=== PATIENT | female | born 1940 | race Caucasian/White ===

== ENCOUNTER 2016-12-01 18:35 | Emergency (ER) ==
[2016-12-01 18:38] VITALS: TEMP 96.9; BMI 23.0
--- NOTE | 2016-12-01 19:11 | ED.PDOC ---
General ED Provider: Dr. LEIGH ANN NAVARRETE Chief Complaint: Hypertension Stated Complaint: Patient is constipated, when she tried to go today evening, she has to sraign, she came out fell funny, checked the blood pressure it was high, so came for the evaluation, Time Seen by Physician: 19:08 Mode of Arrival: Walk-In Information Source: Patient Primary Care Provider: KAYLAH CHACKO Nursing and Triage Documentation Reviewed and Agree: Yes Cardiovascular Complaint Exam - Hypertension Complaint/Exam Symptoms Are: Still present Timing: Intermittent Aggravating: Reports: Exertion Alleviating: Reports: None Associated Signs and Symptoms: Denies: Chest pain, Vision changes, Anxiety, Recent stress, Headache, Numbness, Tingling, Weakness, Dizziness, Short of air, Swelling Related History: Reports: Similar episode Related Surgical History: Reports: None Cardiac Risk Factors: Reports: None Recent Change in Medications: No JVD Present: No Carotid Bruit Present: No Differential Diagnoses: Hypertension Review of Systems - Review Of Systems Constitutional: Reports: No symptoms Eyes: Reports: No symptoms Ears, Nose, Mouth, Throat: Reports: No symptoms Respiratory: Reports: No symptoms Cardiac: Reports: No symptoms GI: Reports: Constipated : Reports: No symptoms Musculoskeletal: Reports: No symptoms Skin: Reports: No symptoms Neurological: Reports: No symptoms Endocrine: Reports: No symptoms Hematologic/Lymphatic: Reports: No symptoms All Other Systems: Reviewed and Negative Past Medical History - Past Medical History Previously Healthy: No Endocrine: Reports: None Cardiovascular: Reports: CAD, Hypertension Respiratory: Reports: None Hematological: Reports: None Gastrointestinal: Reports: None Genitourinary: Reports: None Neuro/Psych: Reports: None Musculoskeletal: Reports: None Cancer: Reports: None Last Menstrual Period: none - Surgical History General Surgical History: Reports: Other (Stent placement many years ago. ) - Family History Family History: Reports: Heart - Social History Smoking Status: Current every day smoker, Heavy tobacco smoker Smoking Cessation Counseling Time: > 10 min Hx Substance Use: No Alcohol Screening: Occasionally Physical Exam - Physical Exam Appearance: Well-appearing, No pain distress, Well-nourished Eyes: EVE, EOMI, Conjunctiva clear ENT: Ears normal, Nose normal, Oropharynx normal Respiratory: Airway patent, Breath sounds clear, Breath sounds equal, Respirations nonlabored Cardiovascular: RRR, Pulses normal, No rub, No murmur GI/: Soft, Nontender, No masses, Bowel sounds normal, No Organomegaly Musculoskeletal: Normal strength, ROM intact, No edema, No calf tenderness Skin: Warm, Dry, Normal color Neurological: Sensation intact, Motor intact, Reflexes intact, Cranial nerves intact, Alert, Oriented Psychiatric: Affect appropriate, Mood appropriate Re-Evaluation - Re-Evaluation Time of Re-Evaluation: 20:57 Status: Improved Critical Care Note - Critical Care Note Total Time (mins): 0 Course - Course Hematology/Chemistry: 12/01/16 19:17 12/01/16 19:17 Orders, Labs, Meds: Lab Review 12/01/16 12/01/16 19:17 19:55 WBC 9.01 RBC 4.04 L Hgb 11.8 L Hct 35.2 L MCV 87.1 MCH 29.2 MCHC 33.5 RDW Coeff of Valeria 14.7 Plt Count 235 Immature Gran % (Auto) 0.3 Neut % (Auto) 62.4 Lymph % (Auto) 26.9 [place] % (Auto) 6.0 Eos % (Auto) 4.0 Baso % (Auto) 0.4 Immature Gran # (Auto) 0.0 Neut # 5.6 Lymph # 2.4 [place] # 0.5 Eos # 0.4 Baso # 0.0 Sodium 134 L Potassium 4.8 Chloride 101 Carbon Dioxide 24 Anion Gap 13.8 BUN 41 H Creatinine 1.57 H Estimated GFR (MDRD) 32.00 BUN/Creatinine Ratio 26.11 Glucose 101 Calcium 9.3 Total Bilirubin 0.26 AST 11 L ALT 9 L Alkaline Phosphatase 61 Total Creatine Kinase 46 Troponin I < 0.0100 Total Protein 7.0 Albumin 3.9 Globulin 3.1 Albumin/Globulin Ratio 1.26 Urine Color Yellow Urine Clarity Clear Urine pH 6.5 Ur Specific [place] 1.010 Urine Protein Negative Urine Glucose (UA) Negative Urine Ketones Negative Urine Blood Negative Urine Nitrite Negative Urine Bilirubin Negative Urine Urobilinogen 0.2 Ur Leukocyte Esterase Trace Urine Microscopic WBC 2-5 Ur Squamous Epith Cells 5-10 Urine Bacteria Trace Orders Category Date Time Status EKG-(ED ONLY) Stat CARDIO 12/01/16 19:04 Completed CBC W/ AUTO DIFF Stat LAB 12/01/16 19:17 Completed COMPREHENSIVE METABOLIC PANEL Stat LAB 12/01/16 19:17 Completed CREATINE KINASE Stat LAB 12/01/16 19:17 Completed TROPONIN I Stat LAB 12/01/16 19:17 Completed UA [URINALYSIS C & S IF INDICATED] Stat LAB 12/01/16 19:55 Completed Metoprolol Tartrate [Lopressor] MEDS 12/01/16 19:13 Discontinued 50 mg PO ONCE STA CT ABDOMEN/PELVIS WO CONTRAST Stat RADS 12/01/16 19:[address] HEAD W/O CONTRAST Stat RADS 12/01/16 19:04 Completed Medications Discontinued Medications Generic Name Dose Route Start Last Admin Trade Name Joseph PRN Reason Stop Dose Admin Metoprolol Tartrate 50 mg 12/01/16 19:13 12/01/16 19:33 Lopressor PO 12/01/16 19:14 50 mg ONCE STA Administration Vital Signs: Temp Pulse Resp BP Pulse Ox 12/01/16 20:26 153/65 H 12/01/16 20:00 180/75 H 12/01/16 18:35 96.9 F L 70 16 206/80 H 96 JASON Risk Score JASON Risk Score: Risk Score Odds of by 30D 0 0.1 (0.1-0.2) 1 0.3 (0.2-0.3) 2 0.4 (0.3-0.5) 3 0.7 (0.6-0.9) 4 1.2 (1.0-1.5) 5 2.2 (1.9-2.6) 6 3.0 (2.5-3.6) 7 4.8 (3.8-6.1) Departure - Departure Time of Disposition: 20:57 Disposition: HOME SELF-CARE Discharge Problem: Hypertension Qualifiers: Hypertension type: essential hypertension Qualifier Code: (I10) Essential ( primary) hypertension Instructions: Hypertension (ED) Condition: Stable Pt referred to PMD for follow-up: Yes Additional Instructions: keep checking the blood pressure Increase fiber diet Miralax po daily Increase hydration Prescriptions: Polyethylene Glycol 3350 [Miralax] 17 gm PO DAILY #30 powd.pack Allergies/Adverse Reactions: Allergies quinine Adverse Reaction (Verified 12/01/16 18:38) Sulfa (Sulfonamide Antibiotics) Adverse Reaction (Verified 12/01/16 18:38) Home Medications: Ambulatory Orders Aspirin [Aspirin EC] 81 mg PO DAILYWM 10/01/15 Lisinopril/Hydrochlorothiazide [Zestoretic 20-12.5 mg Tablet] 1 each PO DAILY Pantoprazole Sodium [Protonix] 20 mg PO DAILY 10/01/15 Amlodipine Besylate [Norvasc] 5 mg PO DAILY 10/09/15 Polyethylene Glycol 3350 [Miralax] 17 gm PO DAILY #30 powd.pack 12/01/16 Disposition Discussed With: Patient, Family
[2016-12-01 19:18] LABS: BASOPHILS % (AUTO) 0.4 % (0.0-3.0); EOSINOPHILS # (AUTO) 0.4 K/ul (0.0-0.7); HEMATOCRIT 35.2 % (37.0-47.0); HEMOGLOBIN 11.8 g/dl (12.0-16.0); IMMATURE GRANULOCYTE % (AUTO) 0.3 % (0.0-5.0); LYMPHOCYTES # (AUTO) 2.4 K/uL (0.60-3.4); LYMPHOCYTES % (AUTO) 26.9 (10.0-50.0); MEAN CORPUSCULAR HEMOGLOBIN 29.2 pg (27.0-31.0); MEAN CORPUSCULAR HGB CONC 33.5 (31.8-35.4); MEAN CORPUSCULAR VOLUME 87.1 fl (81.0-99.0); MONOCYTES # (AUTO) 0.5 K/uL (0.4-2.0); NEUTROPHILS # (AUTO) 5.6 K/ul (2.0-6.9); NEUTROPHILS % (AUTO) 62.4; PLATELET COUNT 235 10^3/uL (140-440); RED BLOOD COUNT 4.04 10^6/ul (4.20-5.40); WHITE BLOOD COUNT 9.01 K/ul (4.6-10.2)
[2016-12-01] MEDS: LOPRESSOR PO STA (19:33)
[2016-12-01 19:44] LABS: ALANINE AMINOTRANSFERASE 9 U/L (12-78); ALBUMIN 3.9 g/dL (3.4-5.0); ALBUMIN/GLOBULIN RATIO 1.26; ALKALINE PHOSPHATASE 61 U/L (53-141); ANION GAP 13.8; ASPARTATE AMINO TRANSFERASE 11 U/L (15-37); BILIRUBIN,TOTAL 0.26 mg/dL (0.00-1.20); BLOOD UREA NITROGEN 41 mg/dL (7-18); BUN/CREATININE RATIO 26.11; CALCIUM 9.3 mg/dL (8.2-10.2); CARBON DIOXIDE 24 mmol/L (23-31); CHLORIDE 101 mmol/L (98-107); CREATINE KINASE 46 U/L; CREATININE 1.57 mg/dL (0.60-1.30); GLUCOSE 101 mg/dL (82-115); POTASSIUM 4.8 mmol/L (3.5-5.10); SODIUM 134 mmol/L (136-145)
[2016-12-01 20:04] LABS: BILIRUBIN,URINE Negative (NEGATIVE); KETONES,URINE Negative (NEGATIVE); LEUKOCYTE ESTERASE ,URINE Trace (NEGATIVE); NITRITE,URINE Negative (NEGATIVE); PH,URINE 6.5 (5-9); PROTEIN,URINE Negative (NEGATIVE); URINE, BLOOD Negative (NEGATIVE)
[2016-12-01 20:09] LABS: ADD URINE MICROSCOPIC YES; BACTERIA,URINE TRACE (NOT PRESENT)
--- NOTE | 2016-12-01 20:21 | CT ---
EXAM: CT scan brain without contrast HISTORY: Dizziness COMPARISON: None. FINDINGS: Contiguous axial images obtained from the skull base to the convexities without contrast utilizing 5-mm collimation. Sagittal and coronal reconstructions were imaged and reviewed.. The ve ntricles and CSF spaces are prominent compatible with age appropriate atrophy. There is periventric ular hypodensity noted compatible with chronic microvascular disease. Atherosclerotic changes are s een involving the bilateral vertebral and bilateral cavernous internal carotid arteries. Visualized paranasal sinuses and mastoid air cells are clear. IMPRESSION: Age appropriate atrophy with chronic microvascular disease. ASVD
--- NOTE | 2016-12-01 20:30 | CT ---
Exam: CT of the abdomen pelvis without contrast History: Constipation Technique: [address] of the abdomen and pelvis following intravenous contrast FINDINGS: The lung bases are clear. No significant liver abnormality. The adrenals, pancreas and sp oskar are unremarkable. The stomach and hiatus are unremarkable.Prior cholecystectomy. Kidneys and pr oximal collecting system are unremarkable. The appendix is not seen. Bowel loops demonstrate normal caliber. No inflamatory change seen in the mesentery or retroperitoneum. Atherosclerotic calcificati on of the aorta with infrarenal dilation measuring 3.8 x 3.6 cm. Normal pelvic bowel loops. No inflammation of the pelvic fat. Prior hysterectomy. Normal urinary bladder. No acute findings of the skeleton. Impression: 1. No inflammatory process, bowel or urinary obstruction is seen. No acute findings of the abdomen or pelvis.
[2016-12-01 21:03] VITALS: BP 153/63
== END 2016-12-01 21:02 | disposition home or self-care (01) ==
LOC: ED 18:35
DX: I10 Essential (primary) hypertension (principal); K59.00 Constipation, unspecified; I25.10 Atherosclerotic heart disease of native coronary artery without angina pectoris; F17.210 Nicotine dependence, cigarettes, uncomplicated; Z79.899 Other long term (current) drug therapy
CPT/HCPCS: 36415; 80053; 81001; 82550; 84484; 85025; 93005; 93010; 99283

== ENCOUNTER 2016-12-16 21:30 | Observation (INO) ==
[2016-12-16] MEDS ORDERED: SODIUM CHLORIDE 1,000 ML IV STA (21:54)
[2016-12-16 22:03] LABS: BASOPHILS % (AUTO) 0.3 % (0.0-3.0); EOSINOPHILS # (AUTO) 0.2 K/ul (0.0-0.7); EOSINOPHILS % (AUTO) 1.1 % (0.0-7.0); HEMATOCRIT 35.8 % (37.0-47.0); HEMOGLOBIN 12.4 g/dl (12.0-16.0); IMMATURE GRANULOCYTE % (AUTO) 0.8 % (0.0-5.0); LYMPHOCYTES # (AUTO) 1.4 K/uL (0.60-3.4); LYMPHOCYTES % (AUTO) 9.1 (10.0-50.0); MEAN CORPUSCULAR HEMOGLOBIN 29.4 pg (27.0-31.0); MEAN CORPUSCULAR HGB CONC 34.6 (31.8-35.4); MEAN CORPUSCULAR VOLUME 84.8 fl (81.0-99.0); MONOCYTES # (AUTO) 0.4 K/uL (0.4-2.0); MONOCYTES % (AUTO) 2.5 (0-10); NEUTROPHILS % (AUTO) 86.2; PLATELET COUNT 283 10^3/uL (140-440); RED BLOOD COUNT 4.22 10^6/ul (4.20-5.40); WHITE BLOOD COUNT 15.03 K/ul (4.6-10.2)
--- NOTE | 2016-12-16 22:11 | ED.PDOC ---
General ED Provider: Dr. MAURI SHUKLA Chief Complaint: Dizziness Stated Complaint: patient was seen in the clinic 4 days ago after one day of dizzines/ light headedness. She was placed on medications for vertigo which she has been taking with no imrpovement. Went back to the clinic yesterday. Had her lisinopril increased 2 weeks ago. She continues to smoke cigg. She then started having chest pain which she describes a pressure with some back pain when she states is a burning senstation. Denies any chest pain right now earlier the pain was 7/10. Took her Asprin Time Seen by Physician: 21:50 Information Source: Patient Exam Limitations: No limitations Primary Care Provider: KAYLAH CHACKO Seen Within Last 72 Hours for Same Complaint By: Clinic Nursing and Triage Documentation Reviewed and Agree: Yes Neurological Complaint Exam - Dizziness Complaint/Exam Last Known Well: 5 days ago Onset: Gradual Duration: 5 days Symptoms Are: Still present Timing: Intermittent Episodes Lasting: Minutes Initial Severity: Moderate Current Severity: Moderate Character: Reports: Lightheaded, Weak, Dizzy Aggravating: Reports: Position change, Supine to erect Associated Signs and Symptoms: Reports: Chest pain. Denies: Nausea, Vomiting, Diaphoresis, Tinnitus, Short of air, Palpitations, Unsteady gait, GI blood loss , Visual changes, Decreased oral intake, Change in medication, Change in diet, OTC meds, Loss of balance Cardiac Risk Factors: Reports: Hypertension, Smoking, Prior HI, CAD CVA Risk Factors: Reports: Hypertension, Smoking, CAD Related Surgical History: Reports: None JVD Present: No Carotid Bruit Present: No Rectal Heme Positive: No Nystagmus Present: No Gag Reflex Present: Yes Meningeal Signs Positive: No Focal Weakness: Present: None Focal Sensory Loss: Present: None Gait: Normal [id number]: Normal Findings Romberg Test Positive: Yes Babinski Sign: Negative Right, Negative Left Heel to Toe Normal: No [place]-Hallpike Test Positive: No (minimal symptoms ) Differential Diagnoses: Anxiety Quality Indicators for Cardiac Chest Pain: EKG in 10min. Quality Indicator For Non-Traumatic Chest Pain/Syncope: EKG Performed Review of Systems - Review Of Systems Constitutional: Reports: Weakness Eyes: Reports: No symptoms Ears, Nose, Mouth, Throat: Reports: Ear pain Respiratory: Reports: No symptoms Cardiac: Reports: Chest pain (pressure ), Lightheadedness GI: Reports: No symptoms : Reports: No symptoms Musculoskeletal: Reports: Back pain Skin: Reports: No symptoms Neurological: Reports: Anxiety, Headache Endocrine: Reports: No symptoms Hematologic/Lymphatic: Reports: No symptoms All Other Systems: Reviewed and Negative Past Medical History - Past Medical History Previously Healthy: No Endocrine: Reports: None Cardiovascular: Reports: CAD, Hypertension Respiratory: Reports: None Hematological: Reports: None Gastrointestinal: Reports: None Genitourinary: Reports: None Neuro/Psych: Reports: None Musculoskeletal: Reports: None Cancer: Reports: None Last Menstrual Period: NONE - Surgical History General Surgical History: Reports: Appendectomy, Cholecystectomy, Stent Placement, Other (Stent placement many years ago. ) - Family History Family History: Reports: Heart - Social History Smoking Status: Current every day smoker, Heavy tobacco smoker Hx Substance Use: No Alcohol Screening: Occasionally Physical Exam - Physical Exam Appearance: Ill-appearing, Thin Ill-appearing: Mild Eyes: EVE, EOMI, Conjunctiva clear ENT: Ears normal, Nose normal, Oropharynx normal Neck: Supple Respiratory: Airway patent, Breath sounds clear, Breath sounds equal, Respirations nonlabored Cardiovascular: RRR, Pulses normal, No rub, No murmur GI/: Soft, Nontender, No masses, Bowel sounds normal, No Organomegaly Musculoskeletal: Normal strength, ROM intact, No edema, No calf tenderness Skin: Warm, Dry, Normal color Neurological: Sensation intact, Motor intact, Reflexes intact, Cranial nerves intact, Alert, Oriented Psychiatric: Anxious Interpretation - Radiology Interpretation Radiology Interpretation By: Radiologist Radiology Results: Negative Exam Interpreted: CT Scan (head without ) Radiology Interpretation By: Radiologist Radiology Results: Negative Exam Interpreted: Portable CXR - Canvas Baster Rate: Normal Rhythm: Sinus - EKG Interpretation Time of EKG #1: 21:40 Rate: Paddy Rhythm: Sinus Ectopy: None [place]: NL ST Segment: Normal Interpretation: s Critical Care Note - Critical Care Note Total Time (mins): 15 Course - Course Hematology/Chemistry: 12/17/16 04:32 12/17/16 04:32 Orders, Labs, Meds: Lab Review 12/16/16 12/16/16 21:59 22:24 WBC 15.03 H RBC 4.22 Hgb 12.4 Hct 35.8 L MCV 84.8 MCH 29.4 MCHC 34.6 RDW Coeff of Valeria 14.5 Plt Count 283 Immature Gran % (Auto) 0.8 Neut % (Auto) 86.2 Lymph % (Auto) 9.1 L [place] % (Auto) 2.5 Eos % (Auto) 1.1 Baso % (Auto) 0.3 Immature Gran # (Auto) 0.1 Neut # 13.0 H Lymph # 1.4 [place] # 0.4 Eos # 0.2 Baso # 0.0 Sodium 127 L Potassium 5.5 H Chloride 98 Carbon Dioxide 18 L Anion Gap 16.5 BUN 32 H Creatinine 1.34 H Estimated GFR (MDRD) 39.00 BUN/Creatinine Ratio 23.88 Glucose 126 H Calcium 9.5 Total Bilirubin 0.24 AST 11 L ALT 11 L Alkaline Phosphatase 59 Total Creatine Kinase 50 Troponin I < 0.0100 B-Natriuretic Peptide 179 H Total Protein 7.0 Albumin 4.0 Globulin 3.0 Albumin/Globulin Ratio 1.33 Urine Color Yellow Urine Clarity Clear Urine pH 7.0 Ur Specific [place] 1.010 Urine Protein Negative Urine Glucose (UA) Negative Urine Ketones Negative Urine Blood Negative Urine Nitrite Negative Urine Bilirubin Negative Urine Urobilinogen 0.2 Ur Leukocyte Esterase Negative Orders Category Date Time Status PLACE PATIENT OBSERVATION .TO MEDSURG (MONITORED BED ADMISSION 12/16/16 22: 55 Completed ) EKG-(ED ONLY) Stat CARDIO 12/16/16 21:54 Completed EKG-(IP & OP ONLY) Routine CARDIO 12/17/16 06:00 Completed ACTIVITY .Up ad Jennifer CARE 12/16/16 22:57 Active INTAKE & OUTPUT Q8HR CARE 12/16/16 22:56 Active TELEMETRY MONITORING TELE CARE 12/16/16 22:56 Active VITAL SIGNS Q4HR CARE 12/16/16 22:57 Active CARDIAC DIET DIETARY 12/16/16 Breakfast Ordered ED IV/MEDIPORT/POWERPORT .ONCE EMERGENCY 12/16/16 21:54 Completed Orthostatic [ED ORTHOSTATIC VITAL SIGNS] .ONCE EMERGENCY 12/16/16 22:10 Completed B-TYPE NATRIURETIC PEPTIDE Stat LAB 12/16/16 21:59 Completed BASIC METABOLIC PANEL DAILY@0600 LAB 12/17/16 04:32 Completed BASIC METABOLIC PANEL DAILY@0600 LAB 12/18/16 06:00 Ordered BASIC METABOLIC PANEL DAILY@0600 LAB 12/19/16 06:00 Ordered BASIC METABOLIC PANEL DAILY@0600 LAB 12/20/16 06:00 Ordered BASIC METABOLIC PANEL DAILY@0600 LAB 12/21/16 06:00 Ordered BASIC METABOLIC PANEL DAILY@0600 LAB 12/22/16 06:00 Ordered BASIC METABOLIC PANEL DAILY@0600 LAB 12/23/16 06:00 Ordered BASIC METABOLIC PANEL DAILY@0600 LAB 12/24/16 06:00 Ordered BASIC METABOLIC PANEL DAILY@0600 LAB 12/25/16 06:00 Ordered BASIC METABOLIC PANEL DAILY@0600 LAB 12/26/16 06:00 Ordered BASIC METABOLIC PANEL DAILY@0600 LAB 12/27/16 06:00 Ordered BASIC METABOLIC PANEL DAILY@0600 LAB 12/28/16 06:00 Ordered BASIC METABOLIC PANEL DAILY@0600 LAB 12/29/16 06:00 Ordered BASIC METABOLIC PANEL DAILY@0600 LAB 12/30/16 06:00 Ordered BASIC METABOLIC PANEL DAILY@0600 LAB 12/31/16 06:00 Ordered BASIC METABOLIC PANEL DAILY@0600 LAB 01/01/17 06:00 Ordered BASIC METABOLIC PANEL DAILY@0600 LAB 01/02/17 06:00 Ordered BASIC METABOLIC PANEL DAILY@0600 LAB 01/03/17 06:00 Ordered BASIC METABOLIC PANEL DAILY@0600 LAB 01/04/17 06:00 Ordered BASIC METABOLIC PANEL DAILY@0600 LAB 01/05/17 06:00 Ordered CBC W/ AUTO DIFF DAILY@06 LAB 12/17/16 04:32 Completed CBC W/ AUTO DIFF DAILY@06 LAB 12/18/16 06:00 Ordered CBC W/ AUTO DIFF DAILY@06 LAB 12/19/16 06:00 Ordered CBC W/ AUTO DIFF DAILY@0600 LAB 12/20/16 06:00 Ordered CBC W/ AUTO DIFF DAILY@06 LAB 12/21/16 06:00 Ordered CBC W/ AUTO DIFF DAILY@06 LAB 12/22/16 06:00 Ordered CBC W/ AUTO DIFF DAILY@0600 LAB 12/23/16 06:00 Ordered CBC W/ AUTO DIFF DAILY@0600 LAB 12/24/16 06:00 Ordered CBC W/ AUTO DIFF DAILY@0600 LAB 12/25/16 06:00 Ordered CBC W/ AUTO DIFF DAILY@0600 LAB 12/26/16 06:00 Ordered CBC W/ AUTO DIFF DAILY@0600 LAB 12/27/16 06:00 Ordered CBC W/ AUTO DIFF DAILY@0600 LAB 12/28/16 06:00 Ordered CBC W/ AUTO DIFF DAILY@0600 LAB 12/29/16 06:00 Ordered CBC W/ AUTO DIFF DAILY@0600 LAB 12/30/16 06:00 Ordered CBC W/ AUTO DIFF DAILY@0600 LAB 12/31/16 06:00 Ordered CBC W/ AUTO DIFF DAILY@0600 LAB 01/01/17 06:00 Ordered CBC W/ AUTO DIFF DAILY@0600 LAB 01/02/17 06:00 Ordered CBC W/ AUTO DIFF DAILY@0600 LAB 01/03/17 06:00 Ordered CBC W/ AUTO DIFF DAILY@0600 LAB 01/04/17 06:00 Ordered CBC W/ AUTO DIFF DAILY@0600 LAB 01/05/17 06:00 Ordered CBC W/ AUTO DIFF Stat LAB 12/16/16 21:59 Completed COMPREHENSIVE METABOLIC PANEL Stat LAB 12/16/16 21:59 Completed CREATINE KINASE Stat LAB 12/16/16 21:59 Completed TROPONIN I Q8H LAB 12/17/16 04:32 Completed TROPONIN I Q8H LAB 12/17/16 13:00 Ordered TROPONIN I Stat LAB 12/16/16 21:59 Completed URINALYSIS C & S IF INDICATED Stat LAB 12/16/16 22:24 Completed 0.9 % Sodium Chloride [Saline Flush] MEDS 12/16/16 21:54 Ordered 1 syr IVF PRN PRN Acetaminophen [Tylenol] MEDS 12/16/16 22:55 Ordered 650 mg PO Q4H PRN Amlodipine Besylate [Norvasc] MEDS 12/17/16 09:00 Ordered 5 mg PO DAILY Aspirin [Aspirin EC] MEDS 12/17/16 08:00 Ordered 81 mg PO DAILYWM Enoxaparin Sodium [Lovenox] MEDS 12/17/16 09:00 Ordered 30 mg SUBCUT DAILY Hydrocodone Bit/Acetaminophen [[place] 5-325] MEDS 12/16/16 22:55 Ordered 1 tab PO Q6H PRN Lisinopril [Lisinopril] MEDS 12/17/16 09:00 Ordered 20 mg PO BID Morphine Sulfate [Morphine 2 mg/ml Syringe] MEDS 12/16/16 22:55 Ordered 2 mg IVP Q4H PRN Ondansetron HCl/Pf [Zofran 4 mg/2 ml] MEDS 12/16/16 22:55 Ordered 4 mg IVP Q6H PRN Pantoprazole Sodium [Protonix] MEDS 12/17/16 09:00 Ordered 20 mg PO DAILY Sodium Chloride 0.9% [Sodium Chloride] 1,000 ml MEDS 12/16/16 21:54 Discontinued IV 1,000 mls/hr Sodium Chloride 0.9% [Sodium Chloride] 1,000 ml MEDS 12/16/16 23:00 Ordered IV 75 mls/hr RESUSCITATION STATUS Routine OTHERS 12/16/16 22:55 Ordered CHEST, 1V AP ONLY Stat RADS 12/16/16 21:[address] HEAD W/O CONTRAST Stat RADS 12/16/16 21:55 Completed Medications Generic Name Dose Route Start Last Admin Trade Name Freq PRN Reason Stop Dose Admin Acetaminophen 650 mg 12/16/16 22:55 Tylenol PO Q4H PRN Mild Pain Acetaminophen/Hydrocodone Bitart 1 tab 12/16/16 22:55 [place] 5-325 PO Q6H PRN moderate pain Amlodipine Besylate 5 mg 12/17/16 09:00 Norvasc PO DAILY EDUAR Aspirin 81 mg 12/17/16 08:00 Aspirin Ec PO DAILYWM EDUAR Enoxaparin Sodium 30 mg 12/17/16 09:00 Lovenox SUBCUT DAILY EDUAR Sodium Chloride 1,000 mls @ 75 mls/hr 12/16/16 23:00 12/16/16 23:52 Sodium Chloride IV 75 mls/hr .[id number] EDUAR Administration Morphine Sulfate 2 mg 12/16/16 22:55 Morphine 2 Mg/Ml Syringe IVP Q4H PRN Severe Pain Non-Formulary Medication 20 mg 12/17/16 09:00 Lisinopril [Lisinopril] PO BID EDUAR Non-Formulary Medication 20 mg 12/17/16 09:00 Pantoprazole Sodium [Protonix] PO DAILY EDUAR Ondansetron HCl 4 mg 12/16/16 22:55 Zofran 4 Mg/2 Ml IVP Q6H PRN Nausea/vomiting Sodium Chloride 1 syr 12/16/16 21:54 12/16/16 22:03 Saline Flush IVF 1 syr PRN PRN Administration To flush IV Discontinued Medications Generic Name Dose Route Start Last Admin Trade Name Freq PRN Reason Stop Dose Admin Sodium Chloride 1,000 mls @ 1,000 mls/hr 12/16/16 21:54 12/16/16 22:03 Sodium Chloride IV 12/16/16 22:53 1,000 mls/hr .Q1H STA Administration Vital Signs: Temp Pulse Resp BP Pulse Ox 12/16/16 22:33 55 L 153/71 H 12/16/16 22:32 54 L 156/66 H 12/16/16 21:31 97.1 F L 58 L 16 179/70 H 93 L Departure - Departure Time of Disposition: 22:44 Disposition: PLACED OBSERVATION Discharge Problem: Dizziness, Hyponatremia, Hyperkalemia Chest pain Qualifiers: Chest pain type: unspecified Qualifier Code: (R07.9) Chest pain, unspecified Hypertension Qualifiers: Hypertension type: essential hypertension Qualifier Code: (I10) Essential ( primary) hypertension Condition: Fair Pt referred to PMD for follow-up: No (admitted ) Allergies/Adverse Reactions: Allergies quinine Adverse Reaction (Verified 12/16/16 21:35) Sulfa (Sulfonamide Antibiotics) Adverse Reaction (Verified 12/16/16 21:35) Home Medications: Ambulatory Orders Aspirin [Aspirin EC] 81 mg PO DAILYWM 10/01/15 Pantoprazole Sodium [Protonix] 20 mg PO DAILY 10/01/15 Amlodipine Besylate [Norvasc] 5 mg PO DAILY 10/09/15 Lisinopril 20 mg PO BID 12/16/16 Disposition Discussed With: Patient, Family
[2016-12-16 22:26] LABS: ALANINE AMINOTRANSFERASE 11 U/L (12-78); ALBUMIN/GLOBULIN RATIO 1.33; ALKALINE PHOSPHATASE 59 U/L (53-141); ANION GAP 16.5; ASPARTATE AMINO TRANSFERASE 11 U/L (15-37); BILIRUBIN,TOTAL 0.24 mg/dL (0.00-1.20); BLOOD UREA NITROGEN 32 mg/dL (7-18); BUN/CREATININE RATIO 23.88; CALCIUM 9.5 mg/dL (8.2-10.2); CARBON DIOXIDE 18 mmol/L (23-31); CHLORIDE 98 mmol/L (98-107); CREATININE 1.34 mg/dL (0.60-1.30); GLUCOSE 126 mg/dL (82-115); POTASSIUM 5.5 mmol/L (3.5-5.10); SODIUM 127 mmol/L (136-145)
[2016-12-16 22:27] LABS: CREATINE KINASE 50 U/L
--- NOTE | 2016-12-16 22:32 | DI ---
EXAM: Portable chest HISTORY: Dizziness COMPARISON: Single-view chest 10/02/2015 FINDINGS: The heart is normal in size. Atherosclerotic changes are seen involving the aortic arch. . There are benign granulomatous changes. IMPRESSION: No evidence of active pulmonary disease.
[2016-12-16 22:33] LABS: BILIRUBIN,URINE Negative (NEGATIVE); KETONES,URINE Negative (NEGATIVE); LEUKOCYTE ESTERASE ,URINE Negative (NEGATIVE); NITRITE,URINE Negative (NEGATIVE); PROTEIN,URINE Negative (NEGATIVE); URINE, BLOOD Negative (NEGATIVE)
[2016-12-16 22:34] LABS: ADD URINE MICROSCOPIC NO
--- NOTE | 2016-12-16 22:34 | CT ---
EXAM: CT head without contrast 12/16/2016. Coronal reformatted images obtained HISTORY: Dizziness COMPARISON: 12/01/2016 FINDINGS: There is no evidence of intracranial hemorrhage. The midline is maintained. There is no hydrocephalus. Generalized atrophy and chronic microvascular ischemic changes. No cerebellar tonsi llar ectopia. Evaluation of the calvarium shows no fracture. The mastoid air cells are normally pn eumatized. IMPRESSION: No acute intracranial abnormality.
[2016-12-16] MEDS ORDERED: NORCO 5-325 PO PRN (22:55)
[2016-12-16] MEDS ORDERED: MORPHINE 2 MG/ML SYRINGE IVP PRN (22:55)
[2016-12-16] MEDS ORDERED: ZOFRAN 4 MG/2 ML IVP PRN (22:55)
[2016-12-16] MEDS ORDERED: TYLENOL PO PRN (22:55)
[2016-12-16] MEDS ORDERED: SODIUM CHLORIDE 1,000 ML IV SCH (23:00)
[2016-12-17 00:16] VITALS: BMI 23.3
[2016-12-17 05:08] LABS: BASOPHILS % (AUTO) 0.2 % (0.0-3.0); EOSINOPHILS # (AUTO) 0.1 K/ul (0.0-0.7); EOSINOPHILS % (AUTO) 0.7 % (0.0-7.0); HEMATOCRIT 32.9 % (37.0-47.0); HEMOGLOBIN 11.2 g/dl (12.0-16.0); IMMATURE GRANULOCYTE % (AUTO) 0.5 % (0.0-5.0); LYMPHOCYTES # (AUTO) 1.6 K/uL (0.60-3.4); LYMPHOCYTES % (AUTO) 13.2 (10.0-50.0); MEAN CORPUSCULAR HEMOGLOBIN 29.2 pg (27.0-31.0); MEAN CORPUSCULAR VOLUME 85.9 fl (81.0-99.0); MONOCYTES # (AUTO) 0.5 K/uL (0.4-2.0); MONOCYTES % (AUTO) 4.2 (0-10); NEUTROPHILS # (AUTO) 9.8 K/ul (2.0-6.9); NEUTROPHILS % (AUTO) 81.2; PLATELET COUNT 248 10^3/uL (140-440); RED BLOOD COUNT 3.83 10^6/ul (4.20-5.40); WHITE BLOOD COUNT 12.09 K/ul (4.6-10.2)
[2016-12-17 05:34] LABS: ANION GAP 13.3; CALCIUM 8.9 mg/dL (8.2-10.2); CREATININE 1.2 mg/dL (0.60-1.30); POTASSIUM 5.3 mmol/L (3.5-5.10)
[2016-12-17] MEDS ORDERED: PROTONIX PO SCH ×2 (07:30)
[2016-12-17] MEDS ORDERED: ASPIRIN EC PO SCH (08:00)
[2016-12-17] MEDS ORDERED: NORVASC PO SCH (09:00)
[2016-12-17] MEDS ORDERED: LOVENOX SUBCUT SCH (09:00)
[2016-12-17] MEDS ORDERED: NON-FORMULARY MEDICATION (Lisinopril [Lisinopril] 20 MG) PO SCH ×22 (09:00)
[2016-12-17] MEDS ORDERED: ZESTRIL PO SCH (09:00)
[2016-12-17] MEDS ORDERED: PANTOPRAZOLE SODIUM 20 MG PO SCH ×22 (09:00)
--- NOTE | 2016-12-17 14:28 | PCM.PROG ---
Attending Provider: ATTENDING PROVIDER: Dr. KAYLAH CHACKO DATE OF SERVICE: 12/17/16 SUBJECTIVE: This 76 year old WHITE/ F was hospitalized 12/16/16 with chest pain seem to be atypical left pectoral muscle mostly on movement of the shoulder. Was seen in the office and ER. Cardiac work up was negative. REVIEW OF SYSTEMS: CONSTITUTIONAL: No night sweats. No fatigue, malaise, lethargy. No fever or chills. HEENT: Eyes: No visual changes. No eye pain. No eye discharge. ENT: No runny nose. No epistaxis. No sinus pain. No odynophagia. No congestion. RESPIRATORY: No cough, no congestion. No hemoptysis. CARDIOVASCULAR: No angina symptoms. No CHF symptoms. No atypical chest pain for CAD. No palpitations. No shortness of breath. GASTROINTESTINAL: No abdominal pain. No nausea or vomiting. No diarrhea or constipation. No hematemesis. No hematochezia. GENITOURINARY: No urgency. No frequency. No dysuria. No hematuria. No obstructive symptoms. No discharge. No pain. No significant abnormal bleeding. MUSCULOSKELETAL: No musculoskeletal pain; no joint swelling. NEUROLOGICAL: Awake, alert, oriented to time, place and person. No headache. No neck pain. No syncope. No seizures. No dizziness. PSYCHIATRIC: Not anxious. No depression. No suicidal thoughts. No homicidal thoughts. SKIN: No rash. No lesions. No wounds. ENDOCRINE: No unexplained weight loss. No weight gain. HEMATOLOGIC/LYMPHATIC: No anemia. No purpura. No petechiae. No prolonged or excessive bleeding. No palpable lymph nodes. PHYSICAL EXAMINATION: GENERAL: The patient is awake, alert and oriented to time, place and person , sitting in bed in no distress. VITAL SIGNS: Temperature 97.9 F, Pulse 59, Respiratory Rate 16, BP 130/68, Pulse Ox 94% HEENT: Head normocephalic, atraumatic. Eyes: Extraocular muscles are intact. Pupils are equal, round and reactive to light and accommodation. Ears: No lesions. Nose appeared normal. Throat: No exudate or erythema. NECK: Supple. No JVD, no carotid bruit. No lymphadenopathy or thyromegaly. LUNGS: Clear to auscultation. Percussion note normal. Chest symmetrical. HEART: S1, S2, no S3. No murmurs. No cyanosis or clubbing. No ascites. Pulses: Dorsalis pedis and posterior tibial pulses +1 to +2 both sides. ABDOMEN: Soft. Non-tender. Bowel sounds active. No CVA tenderness. No mass felt. EXTREMITIES: No edema. Full range of motion of all extremities, equal. NEUROLOGIC: No focal deficit. Cranial nerves II through XII are grossly intact. No headache, no double vision or headache. SKIN: Not dry. Intact. Turgor-normal. LYMPHATIC: No palpable lymph nodes/no lymphedema. MUSCULOSKELETAL: Normal joints with no swelling. Muscle tone is normal. LAB REVIEW: 12/17/16 04:32 12/17/16 04:32 12/17/16 04:32: WBC 12.09 H, RBC 3.83 L, Hgb 11.2 L, Hct 32.9 L, MCV 85.9, MCH 29.2, MCHC 34.0, RDW Coeff of Valeria 14.5, Plt Count 248, Immature Gran % (Auto) 0.5, Neut % (Auto) 81.2, Lymph % (Auto) 13.2, [place] % (Auto) 4.2, Eos % (Auto) 0.7, Baso % (Auto) 0.2, Immature Gran # (Auto) 0.1, Neut # 9.8 H, Lymph # 1.6, [place] # 0.5, Eos # 0.1, Baso # 0.0, Sodium 131 L, Potassium 5.3 H, Chloride 102, Carbon Dioxide 21 L, Anion Gap 13.3, BUN 30 H, Creatinine 1.20, Estimated GFR ( MDRD) 44.00, BUN/Creatinine Ratio 25.00, Glucose 102, Calcium 8.9, Troponin I < 0.0100 ASSESSMENT: 1. Chest pain seems to be non-cardiac 2. Coronary artery disease with stent 3. History hypertension 4. Dyslipidemia 5. Smoking PLAN: 1. The patient is noncompliant 2. Wants to go home 3. Will do echo and stress echo before she goes home 4. Counseling for smoking done 5. Advised to take medication regularly along with baby aspirin Plan and coordination of the patient's care discussed in the presence of [employer]er and nurse. CONDITION: Stable SCRIBED BY: Kacey STONE scribed while in presence of service performed by Dr. KAYLAH CHACKO on 12/17/16 ([id number])
[2016-12-17 15:52] VITALS: BP 158/66; TEMP 97.8
--- NOTE | 2016-12-20 10:07 | ECHOSTRESS ---
Date of Exam: 12/17/16 Ordering Physician: KAYLAH CHACKO Reason for Echo: CHEST PAIN, HX OF CAD, [place] WITH STENT 2009/STRESS TEST--NO ISCHEMIA M-Mode Normal Adult Results LV Dimensions Normal Adult Results AoV Opening excursions >1.6 LVEDD-base- 3.5-5.8 Ao root dimensions 2.0-3.7 LVESD-base- 3.1-4.6 L. Atrium dimensions 1.9-3.8 Post. Wall thickness 0.8-1.1 IV septum (thickness) 0.7-1.2 Post. Wall excursion 0.72-1.3 Septal motion Systolic motion R. Ventricular cavity 1.5-2.0 LVEF 60% Paradoxical septal wall motion 2-D: NORMAL LEFT VENTRICULAR CONTRACTILITY--RESTING AND POST EXERCISE M-MODE: MV: AV: TV: PV: CHAMBER SIZE: WALL MOTION: NORMAL LEFT VENTRICULAR CONTRACTILITY--RESTING AND POST EXERCISE PERICARDIUM: INTERPRETATION: 1. NORMAL LEFT VENTRICULAR CONTRACTILITY--RESTING AND POST EXERCISE MTDD
--- NOTE | 2016-12-20 10:10 | ECHO2D ---
Date of Exam: 12/17/16 Ordering Physician: SALMA CHACKO Reason for Echo: CHEST PAIN, HX CAD, ME WITH STENT 2008 M-Mode Normal Adult Results LV Dimensions Normal Adult Results AoV Opening excursions >1.6 >1.6 LVEDD-base- 3.5-5.8 3.9 Ao root dimensions 2.0-3.7 2.9 LVESD-base- 3.1-4.6 L. Atrium dimensions 1.9-3.8 3.2 Post. Wall thickness 0.8-1.1 1.0 IV septum (thickness) 0.7-1.2 1.0 Post. Wall excursion 0.72-1.3 NORMAL Septal motion NORMAL Systolic motion R. Ventricular cavity 1.5-2.0 NORMAL LVEF 60% 56% Paradoxical septal wall motion NORMAL 2-D : 2-D M Mode Echocardiogram was performed using apical four chamber and left parasternal long and short axis views. Mitral, tricuspid and aortic valves appear to be normal. Contractility of the left ventricle seems to be normal, so is the cavity size. Left atrial cavity size and aortic root appear to be normal. There is no pericardial effusion. There is no thrombus noted in the left ventricular or left aortic cavity. No mitral valve prolapse noted. M-MODE: MV: NORMAL AV: NORMAL TV: NORMAL PV: CHAMBER SIZE: NORMAL WALL MOTION: NORMAL PERICARDIUM: NORMAL INTERPRETATION: 1. NORMAL 2 "D" "M" MODE [facility]
--- NOTE | 2016-12-20 10:23 | STRESSECHO ---
Date of Test: 12/17/16 Reason for Exam: CHEST PAIN, CAD, PR 2008 Ordering Physician: KAYLAH CHACKO Current Medications: TYLENOL, NORCO, NORVASC, LOVENOX, ZESTRIL, ZOFRAN, PROTONIX , LISINOPRIL Physical Findings: S1, S2, NO S3 Resting EKG: SINUS RHYTHM, NO ACUTE CHANGES Target Heart Rate: 124/146 STAGE MPH/GRADE HEART RATE BPM BLOOD PRESSURE mmhg RHYTHM S-T SEGMENT +/- UP DOWN SYMPTOMS,COMMENTS At Rest 52 162/75 SR X NONE 1 1.7/10% 85 180/90 SR X NONE 2 2.5/12% 3 3.4/14% 4 4.2/16% 5 5.0/18% Immediately after 90 SR X FATIGUE Durations of Exercise: 3:07 Maximum Heart Rate Reached: 90 Reason for Termination: FATIGUE 4 MIN POST EXERCISE: HR 60BPM, BP 165/70 MMHG, SR, +/- INTERPRETATION: 98% OXYGEN SATURATION WITH EXERCISE ON ROOM AIR METS 4.7 1. NO EVIDENCE OF ISCHEMIA BY ST-T WAVE CHANGES (HEART RATE 52/MINUTE TO 90/ MINUTE) 2. NO CHEST PAIN OR CHEST DISCOMFORT 3. NO ARRHYTHMIAS 4. BLOOD PRESSURE RESPONSE: SYSTOLIC HYPERTENSION AT REST AND WITH EXERCISE NORMAL LEFT VENTRICULAR CONTRACTILITY--RESTING AND POST EXERCISE MTDD
--- NOTE | 2016-12-23 11:26 | HP ---
DATE OF SERVICE: 12/16/16 REASON FOR HOSPITALIZATION/HISTORY OF PRESENT ILLNESS: The patient is a 76 year old white female came to the emergency room with chest pain. The patient's chest pain was left shoulder, left pectoral muscle more on the movement of the shoulder. The patient was earlier seen in the office with similar problem with both shoulder pain posteriorly. The patient was given a cc of Decadron and was let go. The patient has been lifting grandkids lately. REVIEW OF SYSTEMS: CONSTITUTIONAL: No night sweats. Weakness and fatigue. The patient feels tired lately. No fever or chills. HEENT: Eyes: No visual changes. No eye pain. No eye discharge. ENT: No runny nose. No epistaxis. No sinus pain. No sore throat. No odynophagia. No ear pain. No congestion. RESPIRATORY: Mild cough, no congestion. No hemoptysis. CARDIOVASCULAR: No angina symptoms. No CHF symptoms. No atypical chest pain for CAD. No palpitations. Shortness of breath on exertion. No exertional chest discomfort. No PND. No orthopnea. GASTROINTESTINAL: No abdominal pain. No nausea or vomiting. No diarrhea or constipation. No hematemesis. No hematochezia. GENITOURINARY: No urgency. No frequency. No dysuria. No hematuria. No obstructive symptoms. No discharge. No pain. No significant abnormal bleeding. MUSCULOSKELETAL: No musculoskeletal pain. No joint swelling. No arthritis. NEUROLOGICAL: No headache. No neck pain. No syncope. No seizures. No dizziness. PSYCHIATRIC: Not anxious. No depression. No suicidal thoughts. No homicidal thoughts. SKIN: No rash. No lesions. No wounds. ENDOCRINE: No unexplained weight loss. No weight gain. HEMATOLOGIC/LYMPHATIC: No anemia. No purpura. No petechiae. No prolonged or excessive bleeding. No palpable lymph nodes. PERSONAL/FAMILY/SOCIAL HISTORY: The patient lives by herself. She is a . She is heavy smoker and no alcohol abuse. The patient helps out grandchildren from both sides of the family. PAST MEDICAL/SURGICAL PROBLEMS: Coronary artery disease COPD with heavy smoker Hypertension Gastroesophageal reflux disease MEDICATIONS: Aspirin Pantoprazole Amlodipine Lisinopril ALLERGIES: Quinine Sulfa PHYSICAL EXAMINATION: GENERAL: The patient is oriented to time, place and person. VITAL SIGNS: Temperature 98, pulse 90, respiratory rate 16, blood pressure 130/ 68. HEENT: Head normocephalic, atraumatic. Eyes: Extraocular muscles are intact. Pupils are equal, round and reactive to light and accommodation. Ears: No lesions. Nose appeared normal. Throat: No exudate or erythema. NECK: Supple. No JVP, no carotid bruit. No lymphadenopathy or thyromegaly. LUNGS: Decreased breath sounds but Clear with mild wheeze. Percussion note normal. Chest symmetrical. HEART: S1, S2, no S3. No murmurs. No cyanosis or clubbing. No ascites. Pulses: Dorsalis pedis and posterior tibial pulses +1 bilaterally. ABDOMEN: Soft. Nontender. Bowel sounds active. No CVA tenderness. No mass felt. EXTREMITIES: No edema. Full range of motion of all extremities, equal. NEUROLOGIC: No focal deficit. Cranial nerves II through XII are grossly intact. No headache, no double vision or headache. SKIN: Not dry. Intact. Turgor - normal. LYMPHATIC: No palpable lymph nodes/no lymphedema. MUSCULOSKELETAL: Normal joints with no swelling. Muscle tone is normal. ASSESSMENT: 1. Chest pain seems to be noncardiac more like a shoulder osteoarthritic pain 2. History of coronary artery disease with stent 3. Hypertension 4. Hyperkalemia PLAN: 1. Admit the patient 2. Telemetry 3. Cardiac Markers 4. Echo and stress echo in the morning TIME SPENT: More than 70 minutes. MTDD
--- NOTE | 2016-12-23 13:35 | DS ---
DATE OF SERVICE: 12/17/16 FINAL DIAGNOSIS: 1. CHEST PAIN 2. VERTIGO 3. HYPONATREMIA 4. HISTORY OF CORONARY ARTERY DISEASE WITH STENT 5. CHRONIC OBSTRUCTIVE PULMONARY DISEASE DISCHARGE INSTRUCTIONS: 1. Discharge home today. 2. Return to office in one week. Call to schedule an appointment. 3. Resume home medications. LABS AT DISCHARGE: Hemoglobin 11.2, hematocrit 32, WBC 12,000 with normal differential. Creatinine 1.2, BUN 30, potassium 5.3. MEDICATIONS AT DISCHARGE: Protonix 20 mg daily Lisinopril 20 mg twice daily EC Aspirin 81 mg daily Norvasc 5 mg daily NEW PRESCRIPTIONS: Coreg 3.125 mg p.o. twice daily DIET INSTRUCTIONS: Healthy heart diet. ACTIVITY: Get plenty of rest at home. SMOKING: No smoking. DISEASE SPECIFIC EDUCATION: Carried out about coronary artery disease and smoking. HOSPITAL COURSE: 76 year old white female hospitalized with atypical left sided chest pain. The patient's telemetry and cardiac markers were all negative. EKG's were normal and unchanged. The patient had echocardiogram done which showed normal LV contractility. Normal valves. Stress echo, patients heart rate from 52 per minute went up to almost 90 per minute with no chest pain, no ST-T wave changes and METS level was 4.8 almost 5. The patient did not have any arrhythmias or shortness of breath. The patient was discharged home in stable condition, very likely the patient's chest pain is coming noncardiac and even then the patient was advised to come back to the emergency room in case that she has any further chest pain. TIME SPENT: More than 60 minutes. SUSANNA
--- NOTE | 2016-12-23 13:38 | PN ---
BILLING/CODING The patient needs to be billed for one day-History and Physical and Discharge summary to be dated for 12/17/16. The patient was in the office and billed on 12/16/16 for office visit. SUSANNA
== END 2016-12-17 14:15 | disposition home or self-care (01) ==
LOC: ED 21:30 → MEDSURG B 23:09
PROVIDERS: ADMIT Internal Medicine; ATTEND Internal Medicine
DX: R07.9 Chest pain, unspecified (principal); R42 Dizziness and giddiness; E87.1 Hypo-osmolality and hyponatremia; E87.5 Hyperkalemia; I10 Essential (primary) hypertension; J44.9 Chronic obstructive pulmonary disease, unspecified; I25.10 Atherosclerotic heart disease of native coronary artery without angina pectoris; R06.02 Shortness of breath; F17.200 Nicotine dependence, unspecified, uncomplicated; Z95.5 Presence of coronary angioplasty implant and graft; Z91.19 Patient's noncompliance with other medical treatment and regimen; E78.5 Hyperlipidemia, unspecified
CPT/HCPCS: 36415; 80048; 80053; 81001; 82550; 83880; 84484; 85025; 93005; 93010; 96360; 96361; 96372; 99284; 99285

== ENCOUNTER 2017-02-10 18:17 | Emergency (ER) ==
[2017-02-10 18:17] VITALS: BMI 23.3
[2017-02-10 18:24] VITALS: BP 166/65; TEMP 98.3
--- NOTE | 2017-02-10 19:05 | ED.PDOC ---
General Stated Complaint: Had numbness and L hand cramping 2 X today. First about 3 PM - lasted about 15 minutes. Repeated again - only hand cramping. Time Seen by Physician: 18:55 Mode of Arrival: Walk-In Information Source: Patient <ADAMA GLOVER - Last Filed: 02/10/17 19:02> Nursing and Triage Documentation Reviewed and Agree: Yes <LEIGH ANN NAVARRETE - Last Filed: 02/10/17 21:51> ED Provider: Dr. LEIGH ANN NAVARRETE Chief Complaint: Extremity Swelling/Pain Primary Care Provider: KAYLAH CHACKO Neurological Complaint Exam - Weakness Complaint/Exam Last Known Well: Noon today Onset: Sudden Duration: 15 minutes Symptoms Are: Resolved Timing: Intermittent (2 times this PM) Episodes Lasting: Minutes (15 minutes at 3 PM) Initial Severity: Mild Current Severity: None Aggravating: Reports: None Alleviating: Reports: None (took Potassium pill (non prescribed) last week because of muscle cramps) Associated Signs and Symptoms: Denies: Nausea, Vomiting, Diaphoresis, Tinnitus, Chest pain, Short of air, Palpitations, Unsteady gait, GI blood loss, Visual changes, Decreased oral intake, Change in medication, Change in diet, OTC meds, Loss of balance <ADAMA GLOVER - Last Filed: 02/10/17 19:02> Review of Systems - Review Of Systems Constitutional: Reports: Malaise, Weakness Eyes: Reports: No symptoms Ears, Nose, Mouth, Throat: Reports: No symptoms Respiratory: Reports: No symptoms Cardiac: Reports: No symptoms GI: Reports: No symptoms : Reports: No symptoms Musculoskeletal: Reports: No symptoms Skin: Reports: No symptoms Neurological: Reports: No symptoms Endocrine: Reports: No symptoms Hematologic/Lymphatic: Reports: No symptoms All Other Systems: Reviewed and Negative <LEIGH ANN NAVARRETE - Last Filed: 02/10/17 21:51> Past Medical History - Past Medical History Previously Healthy: No Endocrine: Reports: None Cardiovascular: Reports: CAD, Hypertension Respiratory: Reports: None Hematological: Reports: None Gastrointestinal: Reports: None Genitourinary: Reports: None Neuro/Psych: Reports: None Musculoskeletal: Reports: None Cancer: Reports: None Last Menstrual Period: hysterectomy - Surgical History General Surgical History: Reports: Appendectomy, Cholecystectomy, Stent Placement, Other (Stent placement many years ago. ) - Family History Family History: Reports: Heart - Social History Smoking Status: Current every day smoker, Heavy tobacco smoker Hx Substance Use: No Alcohol Screening: Occasionally <ADAMA GLOVER - Last Filed: 02/10/17 19:02> Physical Exam - Physical Exam Appearance: Well-appearing, No pain distress, Well-nourished Eyes: EVE, EOMI, Conjunctiva clear ENT: Ears normal, Nose normal, Oropharynx normal Respiratory: Airway patent, Breath sounds clear, Breath sounds equal, Respirations nonlabored Cardiovascular: RRR, Pulses normal, No rub, No murmur GI/: Soft, Nontender, No masses, Bowel sounds normal, No Organomegaly Musculoskeletal: Normal strength, ROM intact, No edema, No calf tenderness Skin: Warm, Dry, Normal color Neurological: Sensation intact, Motor intact, Reflexes intact, Cranial nerves intact, Alert, Oriented Psychiatric: Affect appropriate, Mood appropriate <LEIGH ANN NAVARRETE - Last Filed: 02/10/17 21:51> Re-Evaluation - Re-Evaluation Time of Re-Evaluation: 21:48 Status: Improved <LEIGH ANN NAVARRETE - Last Filed: 02/10/17 21:51> Critical Care Note - Critical Care Note Total Time (mins): 0 <LEIGH ANN NAVARRETE - Last Filed: 02/10/17 21:51> Course - Course Hematology/Chemistry: 02/10/17 19:30 02/10/17 19:30 <LEIGH ANN NAVARRETE - Last Filed: 02/10/17 21:51> - Course Orders, Labs, Meds: Lab Review 02/10/17 19:30 WBC 8.25 RBC 3.56 L Hgb 10.4 L Hct 30.8 L MCV 86.5 MCH 29.2 MCHC 33.8 RDW Coeff of Valeria 14.8 Plt Count 229 Immature Gran % (Auto) 0.2 Neut % (Auto) 65.8 Lymph % (Auto) 24.2 [place] % (Auto) 5.7 Eos % (Auto) 3.6 Baso % (Auto) 0.5 Immature Gran # (Auto) 0.0 Neut # 5.4 Lymph # 2.0 [place] # 0.5 Eos # 0.3 Baso # 0.0 Sodium 132 L Potassium 4.6 Chloride 102 Carbon Dioxide 20 L Anion Gap 14.6 BUN 26 H Creatinine 1.24 Estimated GFR (MDRD) 42.00 BUN/Creatinine Ratio 20.96 Glucose 96 Calcium 8.6 Total Bilirubin 0.23 AST 11 L ALT 12 Alkaline Phosphatase 57 Total Protein 6.1 Albumin 3.5 Globulin 2.6 Albumin/Globulin Ratio 1.35 Orders Category Date Time Status CBC W/ AUTO DIFF Stat LAB 02/10/17 19:30 Completed COMPREHENSIVE METABOLIC PANEL Stat LAB 02/10/17 19:[address] HEAD W/O CONTRAST Stat RADS 02/10/17 20:20 Completed Vital Signs: Temp Pulse Resp BP Pulse Ox 02/10/17 18:18 98.3 F 70 20 166/65 H 96 Departure <ADAMA GLOVER - Last Filed: 02/10/17 19:02> - Departure Time of Disposition: 21:50 Pt referred to PMD for follow-up: Yes Disposition Discussed With: Patient, Family <LEIGH ANN NAVARRETE - Last Filed: 02/10/17 21:51> - Departure Disposition: HOME SELF-CARE Discharge Problem: Weakness Instructions: Weakness (ED) Condition: Stable Additional Instructions: ASA 81 PO DAILY WITH FOOD NEEDS CAROTID U/S OUT PATIENT Allergies/Adverse Reactions: Allergies quinine Adverse Reaction (Verified 02/10/17 18:23) Sulfa (Sulfonamide Antibiotics) Adverse Reaction (Verified 02/10/17 18:23) Home Medications: Ambulatory Orders Aspirin [Aspirin EC] 81 mg PO DAILYWM 10/01/15 Pantoprazole Sodium [Protonix] 20 mg PO DAILY 10/01/15 Amlodipine Besylate [Norvasc] 5 mg PO DAILY 10/09/15 Lisinopril 20 mg PO BID 12/16/16 Carvedilol [Coreg] 3.125 mg PO BIDWM #60 tablet 12/17/16 Clonidine HCl 0.1 mg PO DAILY PRN 02/10/17
[2017-02-10 19:40] LABS: BASOPHILS % (AUTO) 0.5 % (0.0-3.0); EOSINOPHILS # (AUTO) 0.3 K/ul (0.0-0.7); EOSINOPHILS % (AUTO) 3.6 % (0.0-7.0); HEMATOCRIT 30.8 % (37.0-47.0); HEMOGLOBIN 10.4 g/dl (12.0-16.0); IMMATURE GRANULOCYTE % (AUTO) 0.2 % (0.0-5.0); LYMPHOCYTES % (AUTO) 24.2 (10.0-50.0); MEAN CORPUSCULAR HEMOGLOBIN 29.2 pg (27.0-31.0); MEAN CORPUSCULAR HGB CONC 33.8 (31.8-35.4); MEAN CORPUSCULAR VOLUME 86.5 fl (81.0-99.0); MONOCYTES # (AUTO) 0.5 K/uL (0.4-2.0); MONOCYTES % (AUTO) 5.7 (0-10); NEUTROPHILS # (AUTO) 5.4 K/ul (2.0-6.9); NEUTROPHILS % (AUTO) 65.8; PLATELET COUNT 229 10^3/uL (140-440); RED BLOOD COUNT 3.56 10^6/ul (4.20-5.40); WHITE BLOOD COUNT 8.25 K/ul (4.6-10.2)
[2017-02-10 19:55] LABS: ALBUMIN 3.5 g/dL (3.4-5.0); ALBUMIN/GLOBULIN RATIO 1.35; ANION GAP 14.6; BILIRUBIN,TOTAL 0.23 mg/dL (0.00-1.20); BUN/CREATININE RATIO 20.96; CALCIUM 8.6 mg/dL (8.2-10.2); CREATININE 1.24 mg/dL (0.60-1.30); POTASSIUM 4.6 mmol/L (3.5-5.10); TOTAL PROTEIN 6.1 g/dL (5.8-8.1)
--- NOTE | 2017-02-10 21:08 | CT ---
EXAM: CT brain without contrast HISTORY: Weakness TECHNIQUE: Multi-slice sequential. Coronal and sagittal reformations were performed. COMPARISON: 12/16/2016 FINDINGS: There is no acute intracranial hemorrhage, extraxial fluid collection, mass affect, or midlineshift. There is mild diffuse sulcal prominence. Ventricular prominence is consistent with the degree of p arenchymal volume loss. Periventricular white matter hypodensity is seen. Intracranial atheroscler osis is present. The basal cisterns are patent. No large vascular territory area of hypodensity is seen within the brain. The calvarium is unremarkable. Visualized paranasal sinuses are clear. Mas to[place] air cells are clear. IMPRESSION: 1. No acute intracranial findings. 2. Age-related changes of mild parenchymal volume loss, small vessel ischemic disease, and intracra nial atherosclerosis.
== END 2017-02-10 22:00 | disposition home or self-care (01) ==
LOC: ED 18:17
DX: R53.1 Weakness (principal); R25.2 Cramp and spasm; I10 Essential (primary) hypertension; I25.10 Atherosclerotic heart disease of native coronary artery without angina pectoris; F17.210 Nicotine dependence, cigarettes, uncomplicated; Z79.899 Other long term (current) drug therapy
CPT/HCPCS: 36415; 80053; 85025; 99283; 99284

== ENCOUNTER 2017-02-18 08:49 | Outpatient (CLI) ==
--- NOTE | 2017-02-18 09:29 | DI ---
EXAM: Three views of the left shoulder. History: Left shoulder pain and trauma. Findings: No acute fracture or dislocation. Osteopenia. Joint spaces are preserved. Impression: No acute osseous abnormality.
--- NOTE | 2017-02-18 09:30 | DI ---
EXAM: Three views of the cervical spine. History: Neck trauma. Findings: Calcified granuloma within the right upper lobe. Atherosclerotic vascular calcifications . No acute fracture or subluxation. No prevertebral soft tissue swelling. Predental space is not widened. Mild degenerative disc disease at C5-6. Impression: No acute osseous abnormality of the cervical spine.
--- NOTE | 2017-02-18 09:31 | DI ---
EXAM: Three views of the thoracic spine. History: Thoracic trauma. Findings: No acute fracture or subluxation. Mild multilevel degenerative disc space narrowing. At herosclerotic vascular calcifications. Calcified granulomas seen within the thorax. Cholecystectom y clips. Probable mild osteopenia. Impression: No acute osseous abnormality of the thoracic spine.
== END 2017-02-18 08:50 | disposition home or self-care (01) ==
LOC: RAD 08:49
PROVIDERS: ATTEND Internal Medicine
DX: M54.2 Cervicalgia (principal); M54.9 Dorsalgia, unspecified; W19.XXXA Unspecified fall, initial encounter

== ENCOUNTER → 2017-03-15 | Outpatient (POV) | LOC: OUTPT 00:01 | PROVIDERS: ATTEND Otolaryngology | DX: R42 Dizziness and giddiness (principal) ==

== ENCOUNTER 2017-06-21 06:22 | Day surgery (SDC) ==
[2017-06-21] MEDS ORDERED: DIPRIVAN 20 ML VIAL IVP ONE (08:30)
[2017-06-21] MEDS ORDERED: VERSED ONE (08:30)
[2017-06-21 09:33] VITALS: TEMP 98
[2017-06-21 12:39] VITALS: BP 137/67
--- NOTE | 2017-06-21 15:21 | OP ---
INDICATIONS FOR PROCEDURE: 77-year-old female presents for a screening colonoscopy. MEDICATIONS: SEE ANESTHESIA NOTES. PROCEDURE: COLONOSCOPY, SNARE POLYPECTOMY. REPORT: The risks, benefits, alternatives and limitations were discussed in detail with the patient. Informed consent was obtained. After adequate sedation was achieved, a digital rectal exam revealed good tone, no masses. The colonoscope was introduced into the rectum and advanced under direct visual guidance to the cecum. The cecum was identified by the appendiceal orifice and IC valve. She does have a little bit of a tortuous colon but we were able to successfully reach the cecum. While advancing the scope at the hepatic flexure, I encountered two polyps, one was about 5 mm in size and this was removed and destroyed using a hot snare. The other one was 8 or 9 mm in size and sessile. I removed it by snare technique. I then slowly withdrew the scope in circumferential manner examining the mucosa quite carefully. I looked on the proximal and distal side of folds and flexures as best as possible. I was able to retroflex the scope in the right colon and the left colon to increase visualization. The colon was otherwise unremarkable its entire length including on retroflex view of the anal canal. The prep was good. The withdrawal time was 7 minutes and 50 seconds. The patient tolerated the procedure well with stable vital signs and pulse oximetry throughout. IMPRESSION: 1. TWO (2) POLYPS REMOVED. RECOMMENDATIONS: 1. High fiber diet. 2. Office visit as needed. 3. Await pathology results. If there is no high grade dysplasia or atypia, I recommend surveillance examination again in 5 years if she is clinically well, sooner if there are any signs, symptoms or pathology suggests otherwise. CC: DR. RICCO MULLINS
== END 2017-06-21 10:05 | disposition home or self-care (01) ==
LOC: SURG 06:22
PROVIDERS: ATTEND Internal Medicine Gastroenterology
DX: Z12.11 Encounter for screening for malignant neoplasm of colon (principal); D12.3 Benign neoplasm of transverse colon

== ENCOUNTER 2017-11-28 09:32 | Outpatient (CLI) ==
--- NOTE | 2017-11-28 10:39 | CT ---
EXAM: CT abdomen pelvis without contrast HISTORY: Follow-up abdominal aortic aneurysm with history of prior cholecystectomy and hysterectomy. COMPARISON: CT abdomen pelvis 12/01/2016 TECHNIQUE: Serial axial images of the abdomen pelvis were performed from the lung bases through the inferior pelvis without contrast. These were viewed in multiple planes. FINDINGS: Lung bases demonstrate moderate edema with no acute consolidation. Evaluation is limited due to lack of contrast. There is moderate atherosclerotic disease. Abdominal aortic aneurysm measures 3.9 cm in diameter and approximately 4.2 cm in length. This is mildly lobu lar and infrarenal in location. The liver is unremarkable with no focal hepatic lesion. There has been a prior cholecystectomy. Adr enal glands are unremarkable. The spleen is unremarkable with calcified granuloma. Left kidney demo nstrates an exophytic anterior low attenuation lesion measuring 1.5 cm in diameter which is unchanged and Hounsfield units consistent with a cyst. The pancreas is unremarkable. Stomach is normal with a duodenal diverticulum. Small bowel in the abdomen pelvis is unremarkable. The colon is unremarkable. Urinary bladder is di stended. There has been a prior hysterectomy. The osseous structures are unremarkable. IMPRESSION: 1. Infrarenal abdominal aortic aneurysm measuring 3.9 cm in diameter with no significant interval ch lavell. 2. Left renal cyst is stable. 3. Prior cholecystectomy and hysterectomy.
== END 2017-11-28 09:33 | disposition home or self-care (01) ==
LOC: RAD 09:32
PROVIDERS: ATTEND Internal Medicine
DX: I35.8 Other nonrheumatic aortic valve disorders (principal)

== ENCOUNTER 2018-10-05 17:03 | Emergency (ER) | payer OTHER ==
[2018-10-05 17:15] VITALS: BP 155/76; TEMP 97; BMI 23.8
--- NOTE | 2018-10-05 17:58 | ED.PDOC ---
General ED Provider: Dr. RENATA PASCUAL Chief Complaint: Hypertension Stated Complaint: Elevated BP, Upper chest wall pressure . Took Clonidine before coming to ER due to BP >190/110. Feeling better now Time Seen by Physician: 17:30 Mode of Arrival: Walk-In Information Source: Patient Exam Limitations: No limitations Primary Care Provider: KAYLAH CHACKO Nursing and Triage Documentation Reviewed and Agree: Yes Does patient meet sepsis criteria?: No System Inflammatory Response Syndrome: Not Applicable Sepsis Protocol: For patient's 13 years and over: Temp is 96.8 and below OR 101 and greater Pulse >90 BPM Resp >20/minute Acutely Altered Mental Status Are patient's symptoms suggestive of a new infection, such as: -Pneumonia -Skin, Soft Tissue -Endocarditis -UTI -Bone, Joint Infection -Implantable Device -Acute Abdominal Infection -Wound Infection -Meningitis -Blood Stream Catheter Infection -Unknown Cardiovascular Complaint Exam - Hypertension Complaint/Exam Onset/Duration: earlier today Symptoms Are: Still present Timing: Intermittent Reported B/P Prior to Arrival: 190/110 Aggravating: Reports: Exertion Alleviating: Reports: Rest Associated Signs and Symptoms: Reports: Chest pain. Denies: Vision changes, Anxiety, Recent stress, Headache, Numbness, Tingling, Weakness, Dizziness, Short of air, Swelling Related History: Reports: Current Kee Inhibitors, Current Beta Nicole, Current Ca Jones.Nicole. Denies: Similar episode Related Surgical History: Reports: None Cardiac Risk Factors: Reports: Hypertension Recent Change in Medications: No A/V Nicking: No Papilledema Present: No JVD Present: No Carotid Bruit Present: No Femoral Pulses Bounding: No Differential Diagnoses: Hypertension Quality Indicator For Non-Traumatic Chest Pain/Syncope: EKG Performed Review of Systems - Review Of Systems Constitutional: Reports: No symptoms Eyes: Reports: No symptoms Ears, Nose, Mouth, Throat: Reports: No symptoms Respiratory: Reports: No symptoms Cardiac: Reports: Chest pain GI: Reports: No symptoms : Reports: No symptoms Musculoskeletal: Reports: No symptoms Skin: Reports: No symptoms Neurological: Reports: No symptoms Endocrine: Reports: No symptoms Hematologic/Lymphatic: Reports: No symptoms All Other Systems: Reviewed and Negative Past Medical History - Past Medical History Previously Healthy: No Endocrine: Reports: None Cardiovascular: Reports: CAD, Hypertension Respiratory: Reports: None Hematological: Reports: None Gastrointestinal: Reports: None Genitourinary: Reports: None Neuro/Psych: Reports: None Musculoskeletal: Reports: None Cancer: Reports: None Last Menstrual Period: unknown - Surgical History General Surgical History: Reports: Appendectomy, Cholecystectomy, Stent Placement, Other (Stent placement many years ago. ) - Family History Family History: Reports: Heart - Social History Smoking Status: Current every day smoker, Heavy tobacco smoker Hx Substance Use: No Alcohol Screening: Occasionally Physical Exam - Physical Exam Appearance: Well-appearing, No pain distress, Well-nourished Ill-appearing: Mild Pain Distress: None Eyes: EVE, EOMI, Conjunctiva clear ENT: Ears normal, Nose normal, Oropharynx normal Respiratory: Airway patent, Breath sounds clear, Breath sounds equal, Respirations nonlabored Cardiovascular: RRR, Pulses normal, No rub, No murmur GI/: Soft, Nontender, No masses, Bowel sounds normal, No Organomegaly Musculoskeletal: Normal strength, ROM intact, No edema, No calf tenderness Skin: Warm, Dry, Normal color Neurological: Sensation intact, Motor intact, Reflexes intact, Cranial nerves intact, Alert, Oriented Psychiatric: Affect appropriate, Mood appropriate Interpretation - Radiology Interpretation Radiology Interpretation By: Radiologist Radiology Results: No acute changes Exam Interpreted: Portable CXR Critical Care Note - Critical Care Note Total Time (mins): 60 Course - Course Hematology/Chemistry: 10/05/18 18:09 Orders, Labs, Meds: Lab Review 10/05/18 18:09 Sodium 134.3 L Potassium 4.29 Chloride 102.8 Carbon Dioxide 23.3 Anion Gap 12.49 BUN 24.5 H Creatinine 1.11 Estimated GFR (MDRD) 48.00 BUN/Creatinine Ratio 22.07 Glucose 101.1 Calcium 9.20 Total Bilirubin 0.25 AST 20.2 ALT 12.4 Alkaline Phosphatase 59.6 Troponin I < 0.012 Total Protein 6.61 Albumin 3.93 Globulin 2.68 Albumin/Globulin Ratio 1.46 Orders Category Date Time Status EKG-(ED ONLY) Stat CARDIO 10/05/18 17:56 Completed IV [ED IV/MEDIPORT/POWERPORT] .ONCE EMERGENCY 10/05/18 17:56 Active CBC W/ AUTO DIFF DAILY@0600 LAB 10/06/18 06:00 Ordered CBC W/ AUTO DIFF DAILY@0600 LAB 10/07/18 06:00 Ordered CMP [COMPREHENSIVE METABOLIC PANEL] Stat LAB 10/05/18 18:09 Completed TROPONIN I Stat LAB 10/05/18 18:09 Completed 0.9 % Sodium Chloride [Saline Flush] MEDS 10/05/18 17:56 Ordered 1 syr IVF PRN PRN CHEST, 1V AP ONLY Stat RADS 10/05/18 17:56 Completed Medications Generic Name Dose Route Start Last Admin Trade Name Freq PRN Reason Stop Dose Admin Sodium Chloride 1 syr 10/05/18 17:56 10/05/18 18:24 Saline Flush IVF 1 syr PRN PRN Administration To flush IV Vital Signs: Temp Pulse Resp BP Pulse Ox 10/05/18 17:04 97.0 F L 68 20 155/76 H 95 JASON Risk Score JASON Risk Score: Risk Score Odds of by 30D 0 0.1 (0.1-0.2) 1 0.3 (0.2-0.3) 2 0.4 (0.3-0.5) 3 0.7 (0.6-0.9) 4 1.2 (1.0-1.5) 5 2.2 (1.9-2.6) 6 3.0 (2.5-3.6) 7 4.8 (3.8-6.1) Departure - Departure Time of Disposition: 19:40 (REquesting discharge to home) Disposition: HOME SELF-CARE Discharge Problem: Labile hypertension Instructions: Heart Healthy Diet (ED), Hypertension (ED), Hypertension in the Older Adult (ED) Condition: Good Pt referred to PMD for follow-up: Yes (See Dr Chacko in 1 wk) IPMP verified?: No Additional Instructions: Remain on all meds Increase Amlodipine to 10 mg daily Monitor BP at Home Discusses with Dr Chacko-would like to see you in office next Tuesday Allergies/Adverse Reactions: Allergies quinine Adverse Reaction (Verified 10/05/18 17:12) Sulfa (Sulfonamide Antibiotics) Adverse Reaction (Verified 10/05/18 17:12) Home Medications: Ambulatory Orders Aspirin [Aspirin EC] 81 mg PO DAILYWM 10/01/15 Pantoprazole Sodium [Protonix] 40 mg PO DAILY 10/01/15 Amlodipine Besylate [Norvasc] 5 mg PO DAILY 10/09/15 Lisinopril 20 mg PO BID 12/16/16 Carvedilol [Coreg] 3.125 mg PO BIDWM #60 tablet 12/17/16 Clonidine HCl 0.1 mg PO DAILY PRN 02/10/17 Transfer Form Completed: Yes Disposition Discussed With: Patient, Family
--- NOTE | 2018-10-05 18:45 | DI ---
Exam: Single view chest x-ray. Date: 10/05/2018. Comparison: 12/16/2016. HISTORY: Hypertension with midsternal chest pain. FINDINGS: No acute osseous abnormalities are seen. The lungs are clear. The cardiac silhouette is enlarged. Pulmonary vasculature is normal. ASVD is present. Impression: No acute intrathoracic findings. Cardiomegaly with ASVD.
== END 2018-10-05 20:10 | disposition home or self-care (01) ==
LOC: ED 17:03
DX: I10 Essential (primary) hypertension (principal); I25.10 Atherosclerotic heart disease of native coronary artery without angina pectoris; F17.210 Nicotine dependence, cigarettes, uncomplicated; Z79.899 Other long term (current) drug therapy
CPT/HCPCS: 36415; 80053; 84484; 93005; 93010; 99283

== ENCOUNTER 2021-02-18 13:23 | Inpatient (IN) ==
[2021-02-18 13:42] LABS: BORDETELLA PARAPERTUSSIS (PCR) NOT DETECTED (NOT DETECT); BORDETELLA PERTUSSIS (PCR) NOT DETECTED (NOT DETECT); CHLAMYDIA PNEUMONIAE (PCR) NOT DETECTED (NOT DETECT); CORONAVIRUS 229E (PCR) NOT DETECTED (NOT DETECT); CORONAVIRUS HKU1 (PCR) NOT DETECTED (NOT DETECT); CORONAVIRUS NL63 (PCR) NOT DETECTED (NOT DETECT); CORONAVIRUS OC43 (PCR) NOT DETECTED (NOT DETECT); HUMAN METAPNEUMOVIRUS (PCR) NOT DETECTED (NOT DETECT); HUMAN RHINOVIRUS/ENTEROV (PCR) NOT DETECTED (NOT DETECT); INFLUENZA B (PCR) NOT DETECTED (NOT DETECT); MYCOPLASMA PNEUMONIAE (PCR) NOT DETECTED (NOT DETECT); PARAINFLUENZA VIRUS 1 (PCR) NOT DETECTED (NOT DETECT); PARAINFLUENZA VIRUS 2 (PCR) NOT DETECTED (NOT DETECT); PARAINFLUENZA VIRUS 3 (PCR) NOT DETECTED (NOT DETECT); PARAINFLUENZA VIRUS 4 (PCR) NOT DETECTED (NOT DETECT); RESPIRATORY SYNCYTIAL V (PCR) NOT DETECTED (NOT DETECT); SARS_COV_2 (PCR) NOT DETECTED (NOT DETECT)
[2021-02-18 14:31] LABS: ADENOVIRUS (PCR) NOT DETECTED (NOT DETECT)
[2021-02-18] MEDS ORDERED: TYLENOL PO PRN (15:39)
[2021-02-18] MEDS ORDERED: ATROPINE SULFATE PFS IVP PRN (15:39)
[2021-02-18] MEDS ORDERED: NITROSTAT SL PRN ×2 (15:39→16:36)
[2021-02-18 15:49] LABS: BASOPHILS % (AUTO) 0.4 % (0.0-3.0); EOSINOPHILS # (AUTO) 0.3 K/ul (0.0-0.7); EOSINOPHILS % (AUTO) 3.1 % (0.0-7.0); HEMATOCRIT 32.4 % (37.0-47.0); HEMOGLOBIN 11.2 g/dl (12.0-16.0); IMMATURE GRANULOCYTE % (AUTO) 0.3 % (0.0-5.0); LYMPHOCYTES % (AUTO) 22.3 (10.0-50.0); MEAN CORPUSCULAR HEMOGLOBIN 30.6 pg (27.0-31.0); MEAN CORPUSCULAR HGB CONC 34.6 (31.8-35.4); MEAN CORPUSCULAR VOLUME 88.5 fl (81.0-99.0); MONOCYTES # (AUTO) 0.6 K/uL (0.4-2.0); MONOCYTES % (AUTO) 6.6 (0-10); NEUTROPHILS % (AUTO) 67.3 % (42.2-75.2); PLATELET COUNT 237 10^3/uL (140-440); RDW COEFFICIENT OF VARIATION 13.3 % (11.6-14.8); RED BLOOD COUNT 3.66 10^6/ul (4.20-5.40); WHITE BLOOD COUNT 8.95 K/ul (4.6-10.2)
[2021-02-18 16:02] LABS: ALANINE AMINOTRANSFERASE 9.3 U/L (0-35); ALBUMIN 4.32 g/dL (3.5-5.0); ALKALINE PHOSPHATASE 54.5 U/L (53-141); ASPARTATE AMINO TRANSFERASE 23.9 U/L (14-36); BILIRUBIN,TOTAL 0.35 mg/dL (0.2-1.3); BLOOD UREA NITROGEN 48.2 mg/dL (7-17); CALCIUM 8.96 mg/dL (8.4-10.2); CARBON DIOXIDE 23.5 mmol/L (22-30.0); CHLORIDE 100.3 mmol/L (98-107); CREATINE KINASE 49.5 U/L (30-135); CREATININE 2.06 mg/dL (0.60-1.30); GLUCOSE 106.8 mg/dL (74-106); POTASSIUM 4.96 mmol/L (3.5-5.1); SODIUM 133.5 mmol/L (134.5-145); TOTAL PROTEIN 6.84 g/dL (6.3-8.2)
[2021-02-18 16:25] VITALS: BMI 20.7
[2021-02-18 16:27] LABS: TROPONIN I < 0.012 ng/ml (0.0000-0.120)
[2021-02-18] MEDS ORDERED: CATAPRES PO PRN ×2 (16:34→17:04)
[2021-02-18] MEDS ORDERED: ANTIVERT PO PRN (16:36)
[2021-02-18 17:40] LABS: BILIRUBIN,URINE Negative (NEGATIVE); CLARITY,URINE Clear (CLEAR); COLOR,URINE Yellow (YELLOW); GLUCOSE, URINE (UA) Negative (NEGATIVE); KETONES,URINE Negative (NEGATIVE); LEUKOCYTE ESTERASE ,URINE 1+ (NEGATIVE); NITRITE,URINE Negative (NEGATIVE); PH,URINE 6.5 (5-9); PROTEIN,URINE Negative (NEGATIVE); URINE, BLOOD Negative (NEGATIVE); UROBILINOGEN,URINE 0.2 (0.2)
[2021-02-18 17:45] LABS: BACTERIA,URINE TRACE (NOT PRESENT); HYALINE CASTS, URINE 0-2 (NOT PRESENT); URINE RBC, MICROSCOPIC 0-2 (0-2)
[2021-02-18] MEDS: ZESTRIL PO SCH (20:30)
[2021-02-18] MEDS: NORVASC PO SCH (20:31)
[2021-02-19 02:07] LABS: CREATINE KINASE 40.7 U/L (30-135)
[2021-02-19 02:10] LABS: BASOPHILS # (AUTO) 0.1 K/uL (0-0.2); BASOPHILS % (AUTO) 0.6 % (0.0-3.0); EOSINOPHILS # (AUTO) 0.3 K/ul (0.0-0.7); EOSINOPHILS % (AUTO) 3.7 % (0.0-7.0); HEMATOCRIT 31.5 % (37.0-47.0); HEMOGLOBIN 10.7 g/dl (12.0-16.0); IMMATURE GRANULOCYTE % (AUTO) 0.2 % (0.0-5.0); LYMPHOCYTES # (AUTO) 2.1 K/uL (0.60-3.4); LYMPHOCYTES % (AUTO) 25.5 (10.0-50.0); MEAN CORPUSCULAR HEMOGLOBIN 30.2 pg (27.0-31.0); MONOCYTES # (AUTO) 0.6 K/uL (0.4-2.0); MONOCYTES % (AUTO) 7.6 (0-10); NEUTROPHILS # (AUTO) 5.2 K/ul (2.0-6.9); NEUTROPHILS % (AUTO) 62.4 % (42.2-75.2); PLATELET COUNT 215 10^3/uL (140-440); RDW COEFFICIENT OF VARIATION 13.2 % (11.6-14.8); RED BLOOD COUNT 3.54 10^6/ul (4.20-5.40); WHITE BLOOD COUNT 8.39 K/ul (4.6-10.2)
[2021-02-19 02:20] LABS: TROPONIN I < 0.012 ng/ml (0.0000-0.120)
[2021-02-19 03:28] LABS: ALANINE AMINOTRANSFERASE 6.4 U/L (0-35); ALBUMIN 3.61 g/dL (3.5-5.0); ALKALINE PHOSPHATASE 53.5 U/L (53-141); ASPARTATE AMINO TRANSFERASE 16.8 U/L (14-36); BILIRUBIN,TOTAL 0.21 mg/dL (0.2-1.3); BLOOD UREA NITROGEN 46.7 mg/dL (7-17); CALCIUM 8.85 mg/dL (8.4-10.2); CARBON DIOXIDE 20.1 mmol/L (22-30.0); CHLORIDE 105.9 mmol/L (98-107); CREATININE 1.77 mg/dL (0.60-1.30); GLUCOSE 90.8 mg/dL (74-106); POTASSIUM 4.99 mmol/L (3.5-5.1); TOTAL PROTEIN 5.88 g/dL (6.3-8.2)
[2021-02-19] MEDS: ASPIRIN EC PO SCH (08:48)
[2021-02-19] MEDS: NORVASC PO SCH ×2 (08:49→20:19)
[2021-02-19] MEDS: SODIUM BICARBONATE PO SCH (08:49)
[2021-02-19] MEDS: ZESTRIL PO SCH ×2 (08:49→20:18)
[2021-02-19] MEDS ORDERED: NORVASC PO SCH (09:00)
--- NOTE | 2021-02-19 10:34 | PCM.PROG ---
Attending Provider: ATTENDING PROVIDER: Dr. KAYLAH CHACKO This patient is seen with Laura Akhtar, Nurse Practitioner. DATE OF SERVICE: 02/19/21 SUBJECTIVE: This 80 year old /WHITE F was hospitalized 02/18/21. The patient is resting comfortably. No dizziness through the night or this morning. Blood pressure is controlled. Kidney function slightly improved from yesterday. Reports has been very tired, weak and dizzy for past few days. REVIEW OF SYSTEMS: CONSTITUTIONAL: No night sweats. Fatigue. No fever or chills. Weakness. HEENT: Eyes: No visual changes. No eye pain. No eye discharge. ENT: No runny nose. No epistaxis. No sinus pain. No odynophagia. No congestion. RESPIRATORY: No cough, no congestion. No hemoptysis. No shortness of breath. CARDIOVASCULAR: No angina symptoms. No CHF symptoms. No atypical chest pain for CAD. No palpitations. No orthopnea.. GASTROINTESTINAL: No abdominal pain. No nausea or vomiting. No diarrhea or constipation. No hematemesis. No hematochezia. GENITOURINARY: No urgency. No frequency. No dysuria. No hematuria. No obstructi ve symptoms. No discharge. No pain. No significant abnormal bleeding. MUSCULOSKELETAL: No musculoskeletal pain; no joint swelling. NEUROLOGICAL: Awake, alert, oriented to time, place and person. No headache. No neck pain. No syncope. No seizures. No dizziness. PSYCHIATRIC: Not anxious. No depression. No suicidal thoughts. No homicidal thoughts. SKIN: No rash. No lesions. No wounds. ENDOCRINE: No unexplained weight loss. No weight gain. HEMATOLOGIC/LYMPHATIC: No anemia. No purpura. No petechiae. No prolonged or excessive bleeding. No palpable lymph nodes. PHYSICAL EXAMINATION: GENERAL: The patient is awake, alert and oriented, lying in bed in no distress. VITAL SIGNS: Temperature 98.5 F, Pulse 60, Respiratory Rate 16, BP 136/64, Pulse Ox 95% HEENT: Head normocephalic, atraumatic. Eyes: Extraocular muscles are intact. Pupils are equal, round and reactive to light and accommodation. Ears: No lesions. Nose appeared normal. Throat: No exudate or erythema. NECK: Supple. No JVD, no carotid bruit. No lymphadenopathy or thyromegaly. LUNGS: Diminished breath sounds. Clear to auscultation. Percussion note normal. Chest symmetrical. HEART: S1, S2, no S3. No murmurs. No cyanosis or clubbing. No ascites. Pulses: Dorsalis pedis and posterior tibial pulses +1 to +2 both sides. ABDOMEN: Soft. Non-tender. Bowel sounds active. No CVA tenderness. No mass felt. EXTREMITIES: No edema. Full range of motion of all extremities, equal. NEUROLOGIC: No focal deficit. Cranial nerves II through XII are grossly intact. No headache. No double vision. SKIN: Not dry. Intact. Turgor-normal. LYMPHATIC: No palpable lymph nodes/no lymphedema. MUSCULOSKELETAL: Normal joints with no swelling. Muscle tone is normal. LAB REVIEW: 02/19/21 01:52 02/19/21 01:52 02/19/21 01:52: Sodium 133.0 L, Potassium 4.99, Chloride 105.9, Carbon Dioxide 20.1 L, Anion Gap 11.99, BUN 46.7 H, Creatinine 1.77 H, Estimated GFR (MDRD) 28.00, BUN/Creatinine Ratio 26.38, Glucose 90.8, Calcium 8.85, Total Bilirubin 0.21, AST 16.8, ALT 6.4, Alkaline Phosphatase 53.5, Total Protein 5.88 L, Albumin 3.61, Globulin 2.27, Albumin/Globulin Ratio 1.59 02/19/21 01:52: WBC 8.39, RBC 3.54 L, Hgb 10.7 L, Hct 31.5 L, MCV 89.0, MCH 30.2, MCHC 34.0, RDW Coeff of Valeria 13.2, Plt Count 215, Immature Gran % (Auto) 0.2, Neut % (Auto) 62.4, Lymph % (Auto) 25.5, [place] % (Auto) 7.6, Eos % (Auto) 3.7, Baso % (Auto) 0.6, Neut # (Auto) 5.2, Lymph # (Auto) 2.1, [place] # (Auto) 0.6, Eos # (Auto) 0.3, Baso # (Auto) 0.1, Immature Gran # (Auto) 0.0 02/18/21 17:30: Urine Color Yellow, Urine Clarity Clear, Urine pH 6.5, Ur Specific [place] 1.010, Urine Protein Negative, Urine Glucose (UA) Negative, Urine Ketones Negative, Urine Blood Negative, Urine Nitrite Negative, Urine Bilirubin Negative, Urine Urobilinogen 0.2, Ur Leukocyte Esterase 1+ H, Urine Microscopic RBC 0-2, Urine Microscopic WBC 10-20, Ur Squamous Epith Cells 10-20, Urine Bacteria Trace, Hyaline Casts 0-2 02/18/21 15:41: Free T4 1.01 02/18/21 15:41: Sodium 133.5 L, Potassium 4.96, Chloride 100.3, Carbon Dioxide 23.5, Anion Gap 14.66, BUN 48.2 H, Creatinine 2.06 H, Estimated GFR (MDRD) 23.00, BUN/Creatinine Ratio 23.39, Glucose 106.8 H, Calcium 8.96, Total Bilirubin 0.35, AST 23.9, ALT 9.3, Alkaline Phosphatase 54.5, Total Creatine Kinase 49.5, Troponin I < 0.012, Total Protein 6.84, Albumin 4.32, Globulin 2.52, Albumin/Globulin Ratio 1.71, TSH 1.310 02/18/21 15:41: WBC 8.95, RBC 3.66 L, Hgb 11.2 L, Hct 32.4 L, MCV 88.5, MCH 30.6, MCHC 34.6, RDW Coeff of Valeria 13.3, Plt Count 237, Immature Gran % (Auto) 0.3, Neut % (Auto) 67.3, Lymph % (Auto) 22.3, [place] % (Auto) 6.6, Eos % (Auto) 3.1, Baso % (Auto) 0.4, Neut # (Auto) 6.0, Lymph # (Auto) 2.0, [place] # (Auto) 0.6, Eos # (Auto) 0.3, Baso # (Auto) 0.0, Immature Gran # (Auto) 0.0 02/18/21 13:30: Adenovirus (PCR) Not detected, B. pertussis DNA (PCR) Not detect ed, B.parapertussis DNA PCR Not detected, C. pneumoniae DNA (PCR) Not detected, Coronavirus OC43 (PCR) Not detected, Coronavirus HKU1 (PCR) Not detected, Coronavirus 229E (PCR) Not detected, Coronavirus NL63 (PCR) Not detected, Human Metapneumovir PCR Not detected, Influenza Type A (PCR) Not detected, Influenza B (RT-PCR) Not detected, M. pneumoniae (PCR) Not detected, Parainfluenza 1 (PCR) Not detected, Parainfluenza 2 (PCR) Not detected, Parainfluenza 3 (PCR) Not detected, Parainfluenza 4 (PCR) Not detected, RSV (PCR) Not detected, Entero/Rhino (PCR) Not detected, SARS-CoV-2 (PCR) Not detected 02/18/21 01:52: Total Creatine Kinase 40.7, Troponin I < 0.012 ASSESSMENT: Please see below. 1. Tachybrady syndrome 2. Dizziness 3. Chronic kidney disease stage 3-4 4. Hypertension PLAN: 1. Will continue to monitor 2. 2D echo Plan and coordination of the patient's care discussed in the presence of [employer]asing [employer] and nurse. SCRIBED BY: Chelsea STONEist scribed while in presence of service performed by Dr. Chacko/Laura Akhtar APRN on 02/19/21 (0800)
--- NOTE | 2021-02-19 10:58 | PN ---
DATE OF SERVICE: 02/18/2021 SUBJECTIVE: The patient was hospitalized with feeling dizzy, light headed and palpitation. The patient was seen in the emergency room yesterday. Palpitation and all the workup was negative for any acute myocardial event. She was given Holter Monitor. Today the Holter Monitor was taken off which showed pauses of more than 2.5 seconds, more than 60 pauses noted like that over 24 hours. The longest pause was 3.5 seconds. The patient was called and she agreed to be hospitalized for further observation and change in the medications. The patient has no symptoms of CHF. REVIEW OF SYSTEMS: CONSTITUTIONAL: No night sweats. No fatigue, malaise, lethargy. No fever or chills. HEENT: Eyes: No visual changes. No eye pain. No eye discharge. ENT: No runny nose. No epistaxis. No sinus pain. No sore throat. No odynophagia. No congestion. RESPIRATORY: No cough, no congestion. No hemoptysis. No shortness of breath. CARDIOVASCULAR: No angina symptoms. No CHF symptoms. No atypical chest pain for CAD. No palpitations. No PND. No orthopnea. GASTROINTESTINAL: No abdominal pain. No nausea or vomiting. No diarrhea or constipation. No hematemesis. No hematochezia. GENITOURINARY: No urgency. No frequency. No dysuria. No hematuria. No obstructive symptoms. No discharge. No pain. No significant abnormal bleeding. MUSCULOSKELETAL: No musculoskeletal pain; no joint swelling. NEUROLOGICAL: No headache. No neck pain. No syncope. No seizures. No dizziness. PSYCHIATRIC: Not anxious. No depression. No suicidal thoughts. No homicidal thoughts. SKIN: No rash. No lesions. No wounds. ENDOCRINE: No unexplained weight loss. No weight gain. HEMATOLOGIC/LYMPHATIC: No anemia. No purpura. No petechiae. No prolonged or excessive bleeding. No palpable lymph nodes. PHYSICAL EXAMINATION: HEENT: Head normocephalic, atraumatic. Eyes: Extraocular muscles are intact. Pupils are equal, round and reactive to light and accommodation. Ears: No lesions. Nose appeared normal. Throat: No exudate or erythema. NECK: Supple. No JVD, no carotid bruit. No lymphadenopathy or thyromegaly. LUNGS: Clear to auscultation. Percussion note normal. Chest symmetrical. HEART: S1, S2, no S3. No murmurs. No cyanosis or clubbing. No ascites. Pulses: Dorsalis pedis and posterior tibial pulses +1 to +2 bilaterally. ABDOMEN: Soft. Nontender. Bowel sounds active. No CVA tenderness. No mass felt. EXTREMITIES: No edema. Full range of motion of all extremities, equal. NEUROLOGIC: No focal deficit. Cranial nerves II through XII are grossly intact. No headache. No double vision. Stable. SKIN: Not dry. Intact. Turgor - normal. LYMPHATIC: No palpable lymph nodes/no lymphedema. MUSCULOSKELETAL: Normal joints with no swelling. Muscle tone is normal. ASSESSMENT: 1. Tachybrady syndrome with Holter showing short runs of atrial fibrillation or SVT. Few of them with rate of 130 per minute and slowest heart rate was 30 per minute with longest pause of 3.5 seconds. 2. History of hypertension 3. Dyslipidemia 4. History of smoking PLAN: 1. Routine telemetry orders to rule out any acute myocardial event 2. She will have telemetry 3. T4 TSH is going to be done 4. Coreg is going to be discontinued. TIME SPENT: More than 30 minutes. Plan and coordination of the patient's care discussed in the presence of nurse. SUSANNA
[2021-02-19] MEDS ORDERED: DECADRON IM ONE (12:04)
[2021-02-19] MEDS: NICODERM 21 MG TD SCH (16:02)
[2021-02-19] MEDS ORDERED: DULCOLAX PO PRN (16:13)
--- NOTE | 2021-02-19 16:16 | US ---
EXAM: Ultrasound bilateral carotid duplex HISTORY: Dizziness and regular heart rate COMPARISON: Carotid Doppler 10/21/2020 TECHNIQUE: Sonographic and color Doppler evaluation of the carotids were performed. FINDINGS: The right carotid is patent in appearance with mild atherosclerotic plaque visualized. The right ICA peak systolic velocity measures 90 cm/sec which is normal. The ICA / CCA peak systolic velocity ratio is 1.0 and ICA end-diastolic velocity is 13 cm/sec. The left carotid is patent in appearance with mild to moderate atherosclerotic plaque visualized. The left ICA peak systolic velocity measures 131 cm/sec which is elevated. The left ICA / CCA peak systolic velocity ratio is 1.5 and ICA end-diastolic velocity is 27 cm/sec. Vertebral arteries demonstrate antegrade flow bilaterally. Color Doppler and wave spectral evaluation is consistent with findings above. IMPRESSION: 1. Mild to moderate atherosclerotic disease of the left carotid with elevated velocities suggestive of moderate, 50 - 69% stenosis. 2. Mild atherosclerotic disease of the right carotid with no color Doppler evidence of hemodynamical ly significant stenosis.
[2021-02-20 05:27] LABS: BASOPHILS % (AUTO) 0.1 % (0.0-3.0); HEMATOCRIT 31.3 % (37.0-47.0); HEMOGLOBIN 10.8 g/dl (12.0-16.0); IMMATURE GRANULOCYTE % (AUTO) 0.2 % (0.0-5.0); LYMPHOCYTES % (AUTO) 12.3 (10.0-50.0); MEAN CORPUSCULAR HEMOGLOBIN 29.8 pg (27.0-31.0); MEAN CORPUSCULAR HGB CONC 34.5 (31.8-35.4); MEAN CORPUSCULAR VOLUME 86.5 fl (81.0-99.0); MONOCYTES # (AUTO) 0.3 K/uL (0.4-2.0); MONOCYTES % (AUTO) 4.2 (0-10); NEUTROPHILS # (AUTO) 6.8 K/ul (2.0-6.9); NEUTROPHILS % (AUTO) 83.2 % (42.2-75.2); PLATELET COUNT 216 10^3/uL (140-440); RDW COEFFICIENT OF VARIATION 13.1 % (11.6-14.8); RED BLOOD COUNT 3.62 10^6/ul (4.20-5.40); WHITE BLOOD COUNT 8.15 K/ul (4.6-10.2)
[2021-02-20 06:12] LABS: ALANINE AMINOTRANSFERASE 6.8 U/L (0-35); ALBUMIN 3.93 g/dL (3.5-5.0); ALKALINE PHOSPHATASE 53.6 U/L (53-141); ASPARTATE AMINO TRANSFERASE 19.5 U/L (14-36); BILIRUBIN,TOTAL 0.3 mg/dL (0.2-1.3); BLOOD UREA NITROGEN 42.4 mg/dL (7-17); CALCIUM 9.41 mg/dL (8.4-10.2); CARBON DIOXIDE 19.1 mmol/L (22-30.0); CHLORIDE 104.4 mmol/L (98-107); CREATININE 1.49 mg/dL (0.60-1.30); GLUCOSE 104.6 mg/dL (74-106); POTASSIUM 5.25 mmol/L (3.5-5.1); SODIUM 130.9 mmol/L (134.5-145); TOTAL PROTEIN 6.41 g/dL (6.3-8.2)
--- NOTE | 2021-02-20 09:27 | HP ---
DATE OF SERVICE: 02/18/21 HISTORY OF PRESENT ILLNESS: 80-year-old white female who turned in her holter monitor this morning to Cardiopulmonary. She had multiple pauses ranging from 3.6 seconds. She has been dizzy lately. She is to come here for a direct admission. PAST MEDICAL HISTORY: Dyslipidemia, she refuses statins Palpitations Dizziness Chronic bronchitis PVCs Anemia Constipation Vertigo COPD Hypertension Chronic kidney disease, Stage 3, sees Dr. Woody Osteoporosis Renal artery stenosis Smoker Vitamin D deficiency Atherosclerotic heart disease Right carotid bruit Carotid stenosis PAST SURGICAL HISTORY: Status post endovascular repair Aortic aneurysm in 09/[address] Christensen, last CT of the abdomen and pelvis was 10/19 Bilateral cataract extraction Last colonoscopy [address] Spencer REVIEW OF SYSTEMS: CONSTITUTIONAL: Weakness. No night sweats. No fatigue, malaise, lethargy. No fever or chills. HEENT: Eyes: No visual changes. No eye pain. No eye discharge. ENT: No runny nose. No epistaxis. No sinus pain. No sore throat. No odynophagia. No ear pain. No congestion. RESPIRATORY: No cough, no congestion. No hemoptysis. No shortness of breath. CARDIOVASCULAR: Palpitations. No angina symptoms. No CHF symptoms. No atypical chest pain for CAD. No PND. No orthopnea. GASTROINTESTINAL: No abdominal pain. No nausea or vomiting. No diarrhea or constipation. No hematemesis. No hematochezia. GENITOURINARY: No urgency. No frequency. No dysuria. No hematuria. No obstructive symptoms. No discharge. No pain. No significant abnormal bleeding. MUSCULOSKELETAL: No musculoskeletal pain. No joint swelling. No arthritis. NEUROLOGICAL: Positive for dizziness. No headache. No neck pain. No syncope. No seizures. No dizziness. PSYCHIATRIC: Not anxious. No depression. No suicidal thoughts. No homicidal thoughts. SKIN: No rash. No lesions. No wounds. ENDOCRINE: No unexplained weight loss. No weight gain. HEMATOLOGIC/LYMPHATIC: No anemia. No purpura. No petechiae. No prolonged or excessive bleeding. No palpable lymph nodes. PERSONAL/FAMILY/SOCIAL HISTORY: She is . 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 She lives by herself. Heavy smoker. No alcohol or illicit drug use. MEDICATIONS: Aspirin 81 mg p.o. daily with meal Lisinopril 20 mg p.o. b.i.d. Carvedilol 3.125 mg p.o. b.i.d. with meal Nitroglycerin 0.4 mg sublingual q.5-15m p.r.n. Meclizine 25 mg p.o. t.i.d. p.r.n. Sodium bicarbonate 650 mg p.o. daily Clonidine 0.1 p.o. daily p.r.n. Amlodipine 5 mg p.o. b.i.d. ALLERGIES: QUININE, SULFA PHYSICAL EXAMINATION: VITAL SIGNS: Temperature 97.3, heart rate 69, respirations 18, blood pressure 165/64, pulse ox 96%. HEENT: Head normocephalic, atraumatic. Eyes: Extraocular muscles are intact. Pupils are equal, round and reactive to light and accommodation. Ears: No lesions. Nose appeared normal. Throat: No exudate or erythema. NECK: Supple. No JVD, no carotid bruit. No lymphadenopathy or thyromegaly. LUNGS: Diminished breath sounds. Clear to auscultation. Percussion note normal. Chest symmetrical. HEART: S1, S2, no S3. No murmur. No cyanosis or clubbing. No ascites. Pulses: Dorsalis pedis and posterior tibial pulses +1 to +2 bilaterally. ABDOMEN: Soft. Nontender. Bowel sounds active. No CVA tenderness. No mass felt. EXTREMITIES: No edema. Full range of motion of all extremities, equal. NEUROLOGIC: No focal deficit. Cranial nerves II through XII are grossly intact. No headache, no double vision or headache. SKIN: Not dry. Intact. Turgor - normal. LYMPHATIC: No palpable lymph nodes/no lymphedema. MUSCULOSKELETAL: Normal joints with no swelling. Muscle tone is normal. UA shows 1+ leuks, sodium 133, BUN 48, creatinine 2.06, potassium 4.9, AST 23, ALT 9, TSH 1.3, Free T4 1.01, white count 8.9. Hemoglobin 11.2, hematocrit 32.4, platelets 237. Chest x-ray shows hyperexpanded lungs suggesting emphysema. Respiratory panel by PCR is negative. NT-Pro-BNP is 615, troponin less than 0.012. ASSESSMENT: 1. Palpitations. 2. Tachybrady syndrome with pause of up to 3.6 seconds on beta benito. 3. COPD. PLAN: 1. We will admit. 2. Routine telemetry orders. 3. CBC, CMP daily. 4. Continue home medications with the exception of Coreg. 5. Oxygen at 1 to 2L as needed. 6. We will do a UA. 7. Will follow closely. TIME SPENT: More than 70 minutes. RUBIND
--- NOTE | 2021-02-20 09:29 | PCM.PROG ---
Attending Provider: ATTENDING PROVIDER: Dr. KAYLAH CHACKO DATE OF SERVICE: 02/20/21 SUBJECTIVE: This 80 year old /WHITE F was hospitalized 02/18/21 with dizziness and light headedness. The patient also has evidence of tachy lola syndrome with pauses more than 2.5 seconds with longest being 3.5 seconds. During the hospital stay she was taken off Coreg and hasn't seen any pauses longer than 3 seconds. Holter Monitor will be taken off and I will review that. Dizziness was also present while walking with heart rate of 60-65 per minute. Symptoms more along the lines with vestibular dysfunction which responded to Meclizine and hasn't been dizzy since. REVIEW OF SYSTEMS: CONSTITUTIONAL: No night sweats. No fatigue, malaise, lethargy. No fever or chills. HEENT: Eyes: No visual changes. No eye pain. No eye discharge. ENT: No runny nose. No epistaxis. No sinus pain. No odynophagia. No congestion. RESPIRATORY: No cough, no congestion. No hemoptysis. No shortness of breath. CARDIOVASCULAR: No angina symptoms. No CHF symptoms. No atypical chest pain for CAD. No palpitations. No orthopnea.. GASTROINTESTINAL: No abdominal pain. No nausea or vomiting. No diarrhea or constipation. No hematemesis. No hematochezia. GENITOURINARY: No urgency. No frequency. No dysuria. No hematuria. No obstructive symptoms. No discharge. No pain. No significant abnormal bleeding. MUSCULOSKELETAL: No musculoskeletal pain; no joint swelling. NEUROLOGICAL: Awake, alert, oriented to time, place and person. No headache. No neck pain. No syncope. No seizures. No dizziness. PSYCHIATRIC: Not anxious. No depression. No suicidal thoughts. No homicidal thoughts. SKIN: No rash. No lesions. No wounds. ENDOCRINE: No unexplained weight loss. No weight gain. HEMATOLOGIC/LYMPHATIC: No anemia. No purpura. No petechiae. No prolonged or excessive bleeding. No palpable lymph nodes. PHYSICAL EXAMINATION: GENERAL: The patient is awake, alert and oriented, sitting in bed in no distress. VITAL SIGNS: Temperature 97.7 F, Pulse 65, Respiratory Rate 18, BP 150/71, Pu lse Ox 97% HEENT: Head normocephalic, atraumatic. Eyes: Extraocular muscles are intact. Pupils are equal, round and reactive to light and accommodation. Ears: No lesions. Nose appeared normal. Throat: No exudate or erythema. NECK: Supple. No JVD, no carotid bruit. No lymphadenopathy or thyromegaly. LUNGS: Clear to auscultation. Percussion note normal. Chest symmetrical. HEART: S1, S2, no S3. No murmurs. No cyanosis or clubbing. No ascites. Pulses: Dorsalis pedis and posterior tibial pulses +1 to +2 both sides. ABDOMEN: Soft. Non-tender. Bowel sounds active. No CVA tenderness. No mass felt. EXTREMITIES: No edema. Full range of motion of all extremities, equal. NEUROLOGIC: No focal deficit. Cranial nerves II through XII are grossly intact. No headache, no double vision or headache. SKIN: Warm and dry. Intact. Turgor-normal. LYMPHATIC: No palpable lymph nodes/no lymphedema. MUSCULOSKELETAL: Normal joints with no swelling. Muscle tone is normal. Carotid scan acceptable. Left side 50-70% atherosclerotic plaque. LAB REVIEW: 02/20/21 04:32 02/20/21 04:32 02/20/21 04:32: Sodium 130.9 L, Potassium 5.25 H, Chloride 104.4, Carbon Dioxide 19.1 L, Anion Gap 12.65, BUN 42.4 H, Creatinine 1.49 H, Estimated GFR (MDRD) 34.00, BUN/Creatinine Ratio 28.45, Glucose 104.6, Calcium 9.41, Total Bilirubin 0.30, AST 19.5, ALT 6.8, Alkaline Phosphatase 53.6, Total Protein 6.41, Albumin 3.93, Globulin 2.48, Albumin/Globulin Ratio 1.58 02/20/21 04:32: WBC 8.15, RBC 3.62 L, Hgb 10.8 L, Hct 31.3 L, MCV 86.5, MCH 29.8, MCHC 34.5, RDW Coeff of Valeria 13.1, Plt Count 216, Immature Gran % (Auto) 0.2, Neut % (Auto) 83.2 H, Lymph % (Auto) 12.3, [place] % (Auto) 4.2, Eos % (Auto) 0.0, Baso % (Auto) 0.1, Neut # (Auto) 6.8, Lymph # (Auto) 1.0, [place] # (Auto) 0.3 L, Eos # (Auto) 0.0, Baso # (Auto) 0.0, Immature Gran # (Auto) 0.0 ASSESSMENT: Please see below. PLAN: 1. Review Holter and decide. 2. The patient to see Equipment Service Technician. 3. Advised not to drive until further ordered. 4. Will likely take off Coreg. 5. The patient's creatinine on admission was 2.06 and has come down to 1.4 with BUN of 42 in 48 hours. Plan and coordination of the patient's care discussed in the presence of Automotive Electrical Fitter and nurse. CONDITION: Stable SCRIBED BY: ENRIQUETA BARGER Trimmer Machine Operator scribed while in presence of service performed by Dr. KAYLAH CHACKO on 02/20/21 ([id number])
[2021-02-20] MEDS: NICODERM 21 MG TD SCH (09:35)
[2021-02-20] MEDS: NORVASC PO SCH (09:36)
[2021-02-20] MEDS: ZESTRIL PO SCH (09:36)
[2021-02-20] MEDS: ASPIRIN EC PO SCH (09:36)
[2021-02-20] MEDS: SODIUM BICARBONATE PO SCH (09:36)
[2021-02-20 14:16] VITALS: BP 116/62; TEMP 97
--- NOTE | 2021-02-20 14:36 | CM.DICTOOL ---
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 TORRES RENAL ARTERY STENOSIS VITAMIN D DEFICIENCY OSTEOPOROSIS SURGICAL HISTORY: STATUS POST ENDOVASCULAR REPAIR AORTIC ANEURYSM IN 09/[address] INGRAM, LAST CT OF THE ABDOMEN AND PELVIS WAS 10/19 BILATERAL CATARACT EXTRACTION LAST COLONOSCOPY [address] WATTS HYSTERECTOMY CODE STATUS: DO NOT INTUBATE, CPR ONLY LAST VITALS Temp Pulse Resp BP Pulse Ox 97.7 F 65 18 150/71 H 97 02/20/21 05:07 02/20/21 05:07 02/20/21 05:07 02/20/21 05:07 02/20/21 05:07 TAKE THESE MEDICATIONS AT HOME Amlodipine Besylate (Amlodipine Besylate 5 Mg Tablet) 5 mg PO BID [facility] Last Admin: 02/20/21 09:36 Dose: 5 mg Aspirin (Aspirin 81 Mg Tablet.) 81 mg PO DAILYWM [facility] Last Admin: 02/20/21 09:36 Dose: 81 mg Clonidine (Clonidine Hcl 0.1 Mg Tablet) 0.1 mg PO DAILY PRN PRN Reason: SYSTOLIC GREATER THAN 150 Lisinopril (Lisinopril 10 Mg Tablet) 20 mg PO BID [facility] Last Admin: 02/20/21 09:36 Dose: 20 mg Meclizine HCl (Meclizine Hcl 25 Mg Tablet) 25 mg PO TID PRN PRN Reason: Dizziness Nitroglycerin (Nitroglycerin 0.4 Mg Tab.Subl) 0.4 mg SL Q5MIN X 3 DOSES PRN PRN Reason: Chest Pain Sodium Bicarbonate (Sodium Bicarbonate 650 Mg Tablet) 650 mg PO DAILY [facility] Last Admin: 02/20/21 09:36 Dose: 650 mg Documented by: ALLERGIES quinine Adverse Reaction (Verified 02/18/21 16:27) Hives Sulfa (Sulfonamide Antibiotics) Adverse Reaction (Verified 02/18/21 16:27) Vomiting DISCONTINUED MEDICATIONS 1). COREG NEW PRESCRIPTIONS: NONE SMOKING: SMOKING CESSATION DISEASE SPECIFIC EDUCATION: ARRYTHMIAS HYPERTENSION ACTIVITY COPD MEDICATIONS FALL PRECAUTIONS COVID LAB REVIEW: 02/20/21 04:32 02/20/21 04:32 02/20/21 04:32: Sodium 130.9 L, Potassium 5.25 H, Chloride 104.4, Carbon Dioxide 19.1 L, Anion Gap 12.65, BUN 42.4 H, Creatinine 1.49 H, Estimated GFR (MDRD) 34.00, BUN/Creatinine Ratio 28.45, Glucose 104.6, Calcium 9.41, Total Bilirubin 0.30, AST 19.5, ALT 6.8, Alkaline Phosphatase 53.6, Total Protein 6.41, Albumin 3.93, Globulin 2.48, Albumin/Globulin Ratio 1.58 02/20/21 04:32: WBC 8.15, RBC 3.62 L, Hgb 10.8 L, Hct 31.3 L, MCV 86.5, MCH 29.8, MCHC 34.5, RDW Coeff of Valeria 13.1, Plt Count 216, Immature Gran % (Auto) 0.2, Neut % (Auto) 83.2 H, Lymph % (Auto) 12.3, [place] % (Auto) 4.2, Eos % (Auto) 0.0, Baso % (Auto) 0.1, Neut # (Auto) 6.8, Lymph # (Auto) 1.0, [place] # (Auto) 0.3 L, Eos # (Auto) 0.0, Baso # (Auto) 0.0, Immature Gran # (Auto) 0.0 PLAN: DISCHARGE: HOME TODAY ACTIVITY: UP TOLERATED, FREQUENT REST PERIODS, NO STRENUOUS ACTIVITY STAY IN THE HOUSE WHILE HOT AND HUMID, CHANGE POSITIONS SLOWLY NO DRIVING UNTIL RELEASED BY DR. CHACKO PANDEMIC PRECAUTIONS REPORT CHEST PAIN, WEAKNESS OR UNCONTROLLED DIZZINESS TO YOUR DOCTOR DIET: HEART HEALTHY MD FOLLOW UP: SEE DR. CHACKO/ JULIANA LAWRENCE APRN/ CHANDRA CAIN APRN IN THE OFFICE ON 02/24/2021 @ [address] TSANG, INSTRUCTOR PROGRAMMABLE CONTROLLERS, MARCH 26, 2021 @ [id number], [address] [place] [address], [address] [place] [address], [facility]. [place]ME TO THE APPOINTMENT 15 MINUTES EARLY WITH INSURANCE CARDS, LIST OF MEDS AND WEARING A MASK. PHONE # [phone] CODE STATUS: DO NOT INTUBATE, CPR ONLY MRS PATTON IS ALERT AND ORIENTED X 4. SHE DENIES ANY BREATHING PROBLEMS. SHE IS UP TOLERATED WITH NO ASSISTIVE DEVICE. INDEPENDENT AT HOME. SHE IS A SMOKER AND REFUSES ANY ASSISTANCE IN CESSATION. SKIN WARM DRY AND INTACT. CONTINENT OF BOWEL AND BLADDER. SHE FEEDS SELF AND HAS A 75 - 100% NUTRITIONAL INTAKE AND PROPER AMOUNT OF FLUIDS. SHE IS AWARE AND AGREES TO SEE DR. TSANG AT THE GIVEN APPOINTMENT. LAST 02/17/21. MD JULIANA ELMORE APRN ALYCE HANNAN, APRN
--- NOTE | 2021-02-23 08:00 | HOLTER ---
PATIENT INFORMATION AND COMMENTS Attending Physician: DR. KAYLAH CHACKO Indications: SYMPTOMATIC BRADYCARDIA, PAUSES, DIZZINESS __ Patient Medications: NORVASC, NICODERM, ZESTRIL __ Pre-procedure Summary: Protocol: Standard Heart Rate Started: 02/19/2021918 Minimum: 53 BPM Weight: 130 LBS Ended: 02/20/2021911 Maximum: 163 BPM Height: 64" Duration: 23 HRS 53 MIN Average: 66 BPM _ INTERPRETATIONS/OBSERVATIONS: OFF COREG FOR 24 HOURS 1. BASIC RHYTHM: SINUS, RATE 53 BPM TO 160 BPM, AVERAGE 66 BPM 2. RARE ISOLATED PAC'S AND PVC'S 3. ONE RUN OF ATRIAL FIBRILLATION /SUPRAVENTRICULAR TACHYCARDIA NOTED WITH HEART RATE 160 BPM LASTING [address]-T WAVE CHANGES FROM BASELINE 5. DIARY NOT MAINTAINED MTDD
--- NOTE | 2021-02-23 08:07 | ECHO2D ---
Date of Exam: 02/20/2021 Ordering Physician: DR. KAYLAH CHACKO Room #: 103 Reason for Echo: DIZZINESS, PALPITATIONS, BRADYCARDIA, SICK SINUS SYNDROME M-Mode Normal Adult Results LV Dimensions Normal Adult Results AoV Opening excursions >1.6 >1.6 LVEDD-base- 3.5-5.8 4.2 Ao root dimensions 2.0-3.7 2.9 LVESD-base- 3.1-4.6 L. Atrium dimensions 1.9-3.8 3.7 Post. Wall thickness 0.8-1.1 1.0 IV septum (thickness) 0.7-1.2 1.1 Post. Wall excursion 0.72-1.3 NORMAL Septal motion NORMAL Systolic motion R. Ventricular cavity 1.5-2.0 3.9 LVEF 60% 63% Paradoxical septal wall motion NORMAL 2-D : 2-D M Mode Echocardiogram was performed using apical four chamber and left parasternal long and short axis views. Mitral, tricuspid and aortic valves appear to be normal. Contractility of the left ventricle seems to be normal, so is the cavity size. Left atrial cavity size and aortic root appear to be normal. There is no pericardial effusion. There is no thrombus noted in the left ventricle or left atrial cavity. ENLARGED RIGHT VENTRICLE M-MODE: MV: NORMAL AV: NORMAL TV: NORMAL PV: CHAMBER SIZE: ENLARGED RIGHT VENTRICLE CAVITY WALL MOTION: NORMAL PERICARDIUM: NORMAL INTERPRETATION: 1. ENLARGED RIGHT VENTRICLE CAVITY 2. NORMAL VALVES 3. NORMAL LEFT VENTRICLE AND LEFT ATRIAL CAVITY SIZE 4. NORMAL LEFT VENTRICLE CONTRACTILITY WITH EJECTION FRACTION 63% MTDD
--- NOTE | 2021-02-23 11:05 | PN ---
DATE OF SERVICE: 02/19/21 SUBJECTIVE: The patient was seen and examined with the nurse practitioner. The patient doesn't seem to have any pauses of more than 2 seconds on telemetry. She is off Coreg. Overall cardiovascular status is stable. Holter monitor so that we can record the pauses. TIME SPENT: More than 30 minutes. Plan and coordination of the patient's care discussed in the presence of nurse. SUSANNA
--- NOTE | 2021-02-24 13:25 | DS ---
DATE OF SERVICE: 02/20/2021 FINAL DIAGNOSIS: TACHYBRADY SYNDROME COPD HISTORY: CHRONIC BRONCHITIS COPD HEAVY SMOKER PVCs ANEMIA HYPERTENSION ATHEROSCLEROTIC HEART DISEASE RIGHT CAROTID BRUIT CAROTID STENOSIS PALPITATIONS DYSLIPIDEMIA, SHE REFUSES STATINS DIZZINESS VERTIGO CONSTIPATION CHRONIC KIDNEY DISEASE, STAGE 3 , DR. TORRES RENAL ARTERY STENOSIS VITAMIN D DEFICIENCY OSTEOPOROSIS SURGICAL HISTORY: STATUS POST ENDOVASCULAR REPAIR AORTIC ANEURYSM IN 09/[address] INGRAM, LAST CT OF THE ABDOMEN AND PELVIS WAS 10/19 BILATERAL CATARACT EXTRACTION LAST COLONOSCOPY [address] WATTS HYSTERECTOMY CODE STATUS: DO NOT INTUBATE, CPR ONLY LAST VITALS: Temp Pulse Resp BP Pulse Ox 97.7 F 65 18 150/71 H 97 02/20/21 05:07 02/20/21 05:07 02/20/21 05:07 02/20/21 05:07 02/20/21 05:07 DISCHARGE INSTRUCTIONS: DISCHARGE: HOME TODAY. MD FOLLOW UP: SEE DR. CHACKO/ JULIANA LAWRENCE APRN/ CHANDRA CAIN APRN IN THE OFFICE ON 02/24/2021 @ [address] TSANG, MIMEOGRAPHER, MARCH 26, 2021 @ [facility]. [facility], [address] [place] [address], [address] [place] [address], [facility]. CONME TO THE APPOINTMENT 15 MINUTES EARLY WITH INSURANCE CARDS, LIST OF MEDS AND WEARING A MASK. PHONE # [phone]. TAKE THESE MEDICATIONS AT HOME: Amlodipine Besylate (Amlodipine Besylate 5 Mg Tablet) 5 mg PO BID [facility]PL[facility]ED BY [facility] Last Admin: 02/20/21 09:36 Dose: 5 mg Aspirin (Aspirin 81 Mg Tablet.) 81 mg PO DAILYWM REPLACED BY [facility] Last Admin: 02/20/21 09:36 Dose: 81 mg Clonidine (Clonidine Hcl 0.1 Mg Tablet) 0.1 mg PO DAILY PRN PRN Reason: SYSTOLIC GREATER THAN 150 Lisinopril (Lisinopril 10 Mg Tablet) 20 mg PO BID REPLACED BY [facility] Last Admin: 02/20/21 09:36 Dose: 20 mg Meclizine HCl (Meclizine Hcl 25 Mg Tablet) 25 mg PO TID PRN PRN Reason: Dizziness Nitroglycerin (Nitroglycerin 0.4 Mg Tab.Subl) 0.4 mg SL Q5MIN X 3 DOSES PRN PRN Reason: Chest Pain Sodium Bicarbonate (Sodium Bicarbonate 650 Mg Tablet) 650 mg PO DAILY [facility] Last Admin: 02/20/21 09:36 Dose: 650 mg Documented by: ALLERGIES: quinine Adverse Reaction (Verified 02/18/21 16:27) Hives Sulfa (Sulfonamide Antibiotics) Adverse Reaction (Verified 02/18/21 16:27) Vomiting DISCONTINUED MEDICATIONS: 1). COREG NEW PRESCRIPTIONS: NONE SMOKING: SMOKING CESSATION DISEASE SPECIFIC EDUCATION: ARRHYTHMIAS HYPERTENSION ACTIVITY COPD MEDICATIONS FALL PRECAUTIONS COVID LAB REVIEW: 02/20/21 04:32 02/20/21 04:32 02/20/21 04:32: Sodium 130.9 L, Potassium 5.25 H, Chloride 104.4, Carbon Dioxide 19.1 L, Anion Gap 12.65, BUN 42.4 H, Creatinine 1.49 H, Estimated GFR (MDRD) 34.00, BUN/Creatinine Ratio 28.45, Glucose 104.6, Calcium 9.41, Total Bilirubin 0.30, AST 19.5, ALT 6.8, Alkaline Phosphatase 53.6, Total Protein 6.41, Albumin 3.93, Globulin 2.48, Albumin/Globulin Ratio 1.58 02/20/21 04:32: WBC 8.15, RBC 3.62 L, Hgb 10.8 L, Hct 31.3 L, MCV 86.5, MCH 29.8, MCHC 34.5, RDW Coeff of Valeria 13.1, Plt Count 216, Immature Gran % (Auto) 0.2, Neut % (Auto) 83.2 H, Lymph % (Auto) 12.3, [place] % (Auto) 4.2, Eos % (Auto) 0.0, Baso % (Auto) 0.1, Neut # (Auto) 6.8, Lymph # (Auto) 1.0, [place] # (Auto) 0.3 L, Eos # (Auto) 0.0, Baso # (Auto) 0.0, Immature Gran # (Auto) 0.0 ACTIVITY: UP TOLERATED, FREQUENT REST PERIODS, NO STRENUOUS ACTIVITY STAY IN THE HOUSE WHILE HOT AND HUMID, CHANGE POSITIONS SLOWLY NO DRIVING UNTIL RELEASED BY DR. CHACKO PANDEMIC PRECAUTIONS REPORT CHEST PAIN, WEAKNESS OR UNCONTROLLED DIZZINESS TO YOUR DOCTOR DIET: HEART HEALTHY CODE STATUS: DO NOT INTUBATE, CPR ONLY HOSPITAL COURSE: 80 year old white female hospitalized with dizziness. The patient's dizziness was vestibular dysfunction which was corrected with Meclizine. The patient had bradyarrhythmias noted on Holter Monitor with longest pause being 3.5 and the patient had more than 2.5 second pauses 16 of them in 24 hours. During the stay in the hospital for 48 hours. The patient is observed to be dizzy even with the heart rate of 60-70 per minute. Systolic blood pressure of more than 120. The patient was taken off Coreg. In the hospital the Holter Monitor was repeated at 24 hours after that which did not show any pauses that were seen on the first Holter Monitor. Besides not having any pauses the 2nd Holter showed atrial fibrillation/SVT with rate of 160 per minute lasting 22 seconds. The patient was explained about this finding. The patient was told that she may have short spell of palpitations and what to do if they last longer than 1-2 minutes. In any case she was thoroughly explained about that she started on nicole or Alpha Beta Nicole may slow down the pauses so the best thing is to get her off Coreg and continue Amlodipine and Lisinopril as before. The patient was on small dose of Carvedilol 3.125mg twice a day. The patient has history of chronic kidney disease. She is on soda bicarb. She was advised not to take any nonsteroidal anti-inflammatory. The patient is not drive until she is seen back in the office. The Holter is going to be repeated again in two weeks. She also going to be seen by Oil Well Services Superintendent for tachybrady syndrome. The condition at time of discharge stable. The patient is not a candidate for any blood thinners because her atrial fibrillation load is less than 1%. In fact only 2 seconds of last Holter Monitor is the only episode she had of SVT/Atrial fibrillation. The patient's echocardiogram at the time of discharge showed normal LV contractility, valvular structures are normal, LA size is borderline enlarged with normal LV contractility with normal ejection fraction. LV size was normal. TIME SPENT: More than 60 minutes. SUSANNA
--- NOTE | 2021-02-24 13:26 | PN ---
02/18/2021:Level 5 02/19/2021: Intermediate 02/20/2021: D as in discharge MTDD
== END 2021-02-20 15:05 | disposition home or self-care (01) | DRG 192 ==
LOC: LAB 13:23 → MEDSURG A 15:14
PROVIDERS: ADMIT Internal Medicine; ATTEND Internal Medicine